=== PATIENT | female | born 1935 | race Caucasian/White ===

== ENCOUNTER 2019-05-13 17:28 | Inpatient (IN) | payer MEDICARE ==
--- NOTE | 2019-05-13 17:58 | ED ---
Fall HPI - General Chief Complaint: Fall Stated Complaint: Fall Time Seen by Provider: 05/13/19 17:30 Source: patient, EMS, RN notes reviewed, old records reviewed Mode of arrival: EMS Limitations: altered mental status - History of Present Illness Initial Comments: This is an 9-year-old female the ER for evaluation. Patient was found during well check, patient was found down. Patient believes she fell sometime last night was unable to get up and was unable to move. He is poor historian history obtained from neighbor who did find patient is morning for a welfare check. States patient is on the ground she was some vomit around her but no other significant findings MD Complaint: fall -: hour(s) Fall From: standing When Fall Occurred: 24 hours [employer] Fall Witnessed: no Place Fall Occurred: home Loss of Consciousness: none Prolonged Down Time?: no Symptoms Prior to Fall: none Severity: mild (Patient is no complaints of pain) Severity scale (1-10): 1 Context: tripped/slipped Associated Symptoms: denies - Related Data Home Medications Medication Instructions Recorded Confirmed Calcium Carbonate/Vitamin D3 1 tab PO DAILY 05/13/19 05/13/19 [Calcium 500-Vit D3 200 Tablet] Allergies Allergy/AdvReac Type Severity Reaction Status Date / Time No Known Allergies Allergy Verified 05/13/19 18:20 Review of Systems ROS Statement: Those systems with pertinent positive or pertinent negative responses have been documented in the HPI. ROS Other: All systems not noted in ROS Statement are negative. Past Medical History Additional Past Medical History / Comment(s): RT breast CA (previous.) History of Any Multi-Drug Resistant Organisms: None Reported Past Surgical History: Appendectomy Additional Past Surgical History / Comment(s): Rt sided mastectomy Past Psychological History: No Psychological Hx Reported Smoking Status: Former smoker Past Alcohol Use History: None Reported Past Drug Use History: None Reported - Past Family History Mother History Unknown: Yes Father History Unknown: Yes Family Medical History: Hyperlipidemia General Exam Limitations: no limitations General appearance: alert, in no apparent distress, anxious Head exam: Present: atraumatic, normocephalic, normal inspection Eye exam: Present: normal appearance, PERRL, EOMI. Absent: scleral icterus, conjunctival injection, periorbital swelling ENT exam: Present: normal exam, mucous membranes moist Neck exam: Present: normal inspection. Absent: tenderness, meningismus, lymphadenopathy Respiratory exam: Present: normal lung sounds bilaterally. Absent: respiratory distress, wheezes, rales, rhonchi, stridor Cardiovascular Exam: Present: tachycardia, irregular rhythm, normal heart sounds. Absent: systolic murmur, diastolic murmur, rubs, gallop, clicks GI/Abdominal exam: Present: soft, normal bowel sounds. Absent: distended, t enderness, guarding, rebound, rigid Extremities exam: Present: normal inspection, full ROM, normal capillary refill. Absent: tenderness, pedal edema, joint swelling, calf tenderness Back exam: Present: normal inspection Neurological exam: Present: alert, oriented X3, CN II-XII intact Psychiatric exam: Present: normal affect, normal mood Skin exam: Present: warm, dry, intact, normal color. 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 ] Respiratory 18 Rate Blood Pressure 104/89 104/89 O2 Sat by Pulse 97 94 L Oximetry 05/13/19 05/13/19 05/13/19 18:00 18:30 18:48 Temperature Pulse Rate 105 H 137 H 125 H Pulse Rate [ Assistant Teaching Professor ] Respiratory 14 12 18 Rate Blood Pressure 104/89 86/74 O2 Sat by Pulse 97 98 98 Oximetry 05/13/19 05/13/19 05/13/19 19:00 19:02 19:30 Temperature Pulse Rate 124 H 113 H Pulse Rate [ Assistant Teaching Professor ] Respiratory 13 18 Rate Blood Pressure 108/72 107/77 127/76 O2 Sat by Pulse 97 99 Oximetry 05/13/19 05/13/19 05/13/19 20:30 21:00 21:30 Temperature Pulse Rate 110 H 112 H 107 H Pulse Rate [ Assistant Teaching Professor ] Respiratory 15 17 20 Rate Blood Pressure 134/94 119/89 O2 Sat by Pulse Oximetry - Reevaluation(s) Reevaluation #1: Medical record is reviewed and no history of A. fib Patient will be admitted for cardiology evaluation regarding new onset A. fib with RVR. Patient denies any significant pain Medical Decision Making - Medical Decision Making 84 female the ER for evaluation. Patient found to be in nature fibrillation with RVR. Symptoms improved with rate control. No other injuries, patient be admitted for cardiology observation - Lab Data Result diagrams: 05/14/19 06:58 05/14/19 06:58 Lab Results 05/13/19 05/13/19 05/13/19 Range/Units 18:40 18:40 18:40 WBC 24.6 H (3.8-10.6) k/uL RBC 5.26 (3.80-5.40) m/uL Hgb 16.0 (11.4-16.0) gm/dL Hct 46.4 H (34.0-46.0) % MCV 88.2 (80.0-100.0) fL MCH 30.4 (25.0-35.0) pg MCHC 34.5 (31.0-37.0) g/dL RDW 13.3 (11.5-15.5) % Plt Count 262 (150-450) k/uL Neutrophils % 91 % Lymphocytes % 3 % Monocytes % 5 % Eosinophils % 1 % Basophils % 0 % Neutrophils # 22.3 H (1.3-7.7) k/uL Lymphocytes # 0.8 L (1.0-4.8) k/uL Monocytes # 1.2 H (0-1.0) k/uL Eosinophils # 0.2 (0-0.7) k/uL Basophils # 0.0 (0-0.2) k/uL PT 10.2 (9.0-12.0) sec INR 0.9 (<1.2) APTT 21.3 L (22.0-30.0) sec D-Dimer 1.38 H (<0.60) mg/L FEU Sodium 129 L (137-145) mmol/L Potassium 3.4 L (3.5-5.1) mmol/L Chloride 91 L (98-107) mmol/L Carbon Dioxide 21 L (22-30) mmol/L Anion Gap 17 mmol/L BUN 23 H (7-17) mg/dL Creatinine 0.61 (0.52-1.04) mg/dL Est GFR (CKD-EPI)AfAm >90 (>60 ml/min/1.73 sqM) Est GFR (CKD-EPI)NonAf 84 (>60 ml/min/1.73 sqM) Glucose 117 H (74-99) mg/dL Lactic Ac Sepsis Rflx Plasma Lactic Acid Travis (0.7-2.0) mmol/L Calcium 10.2 (8.4-10.2) mg/dL Phosphorus 3.3 (2.5-4.5) mg/dL Magnesium 2.2 (1.6-2.3) mg/dL Total Bilirubin 1.5 H (0.2-1.3) mg/dL AST 175 H (14-36) U/L ALT 51 (9-52) U/L Alkaline Phosphatase 130 H (38-126) U/L Creatine Kinase (30-135) U/L CK-MB (CK-2) (0.0-2.4) ng/mL Troponin I (0.000-0.034) ng/mL NT-Pro-B Natriuret Pep pg/mL Total Protein 8.5 H (6.3-8.2) g/dL Albumin 5.0 (3.5-5.0) g/dL TSH 2.230 (0.465-4.680) mIU/L 05/13/19 05/13/19 05/13/19 Range/Units 18:40 18:40 18:40 WBC (3.8-10.6) k/uL RBC (3.80-5.40) m/uL Hgb (11.4-16.0) gm/dL Hct (34.0-46.0) % MCV (80.0-100.0) fL MCH (25.0-35.0) pg MCHC (31.0-37.0) g/dL RDW (11.5-15.5) % Plt Count (150-450) k/uL Neutrophils % % Lymphocytes % % Monocytes % % Eosinophils % % Basophils % % Neutrophils # (1.3-7.7) k/uL Lymphocytes # (1.0-4.8) k/uL Monocytes # (0-1.0) k/uL Eosinophils # (0-0.7) k/uL Basophils # (0-0.2) k/uL PT (9.0-12.0) sec INR (<1.2) APTT (22.0-30.0) sec D-Dimer (<0.60) mg/L FEU Sodium (137-145) mmol/L Potassium (3.5-5.1) mmol/L Chloride (98-107) mmol/L Carbon Dioxide (22-30) mmol/L Anion Gap mmol/L BUN (7-17) mg/dL Creatinine (0.52-1.04) mg/dL Est GFR (CKD-EPI)AfAm (>60 ml/min/1.73 sqM) Est GFR (CKD-EPI)NonAf (>60 ml/min/1.73 sqM) Glucose (74-99) mg/dL Lactic Ac Sepsis Rflx Plasma Lactic Acid Travis 2.6 H* (0.7-2.0) mmol/L Calcium (8.4-10.2) mg/dL Phosphorus (2.5-4.5) mg/dL Magnesium (1.6-2.3) mg/dL Total Bilirubin (0.2-1.3) mg/dL AST (14-36) U/L ALT (9-52) U/L Alkaline Phosphatase (38-126) U/L Creatine Kinase (30-135) U/L CK-MB (CK-2) (0.0-2.4) ng/mL Troponin I 0.113 H* (0.000-0.034) ng/mL NT-Pro-B Natriuret Pep 2130 pg/mL Total Protein (6.3-8.2) g/dL Albumin (3.5-5.0) g/dL TSH (0.465-4.680) mIU/L 05/13/19 05/13/19 05/13/19 Range/Units 18:40 18:40 19:17 WBC (3.8-10.6) k/uL RBC (3.80-5.40) m/uL Hgb (11.4-16.0) gm/dL Hct (34.0-46.0) % MCV (80.0-100.0) fL MCH (25.0-35.0) pg MCHC (31.0-37.0) g/dL RDW (11.5-15.5) % Plt Count (150-450) k/uL Neutrophils % % Lymphocytes % % Monocytes % % Eosinophils % % Basophils % % Neutrophils # (1.3-7.7) k/uL Lymphocytes # (1.0-4.8) k/uL Monocytes # (0-1.0) k/uL Eosinophils # (0-0.7) k/uL Basophils # (0-0.2) k/uL PT (9.0-12.0) sec INR (<1.2) APTT (22.0-30.0) sec D-Dimer (<0.60) mg/L FEU Sodium (137-145) mmol/L Potassium (3.5-5.1) mmol/L Chloride (98-107) mmol/L Carbon Dioxide (22-30) mmol/L Anion Gap mmol/L BUN (7-17) mg/dL Creatinine (0.52-1.04) mg/dL Est GFR (CKD-EPI)AfAm (>60 ml/min/1.73 sqM) Est GFR (CKD-EPI)NonAf (>60 ml/min/1.73 sqM) Glucose (74-99) mg/dL Lactic Ac Sepsis Rflx Y Plasma Lactic Acid Travis (0.7-2.0) mmol/L Calcium (8.4-10.2) mg/dL Phosphorus (2.5-4.5) mg/dL Magnesium (1.6-2.3) mg/dL Total Bilirubin (0.2-1.3) mg/dL AST (14-36) U/L ALT (9-52) U/L Alkaline Phosphatase (38-126) U/L Creatine Kinase 6044 H* (30-135) U/L CK-MB (CK-2) 72.2 H (0.0-2.4) ng/mL Troponin I (0.000-0.034) ng/mL NT-Pro-B Natriuret Pep pg/mL Total Protein (6.3-8.2) g/dL Albumin (3.5-5.0) g/dL TSH (0.465-4.680) mIU/L - EKG Data -: EKG Interpreted by Me (EKG shows A. fib with RVR rate 127, QRS 82, QTc 4:30) - Radiology Data Radiology results: report reviewed (CT brain C-spine negative for acute disease chest x-rays negative for acute disease pelvis x-rays negative for acute disease CTA chest is negative for acute disease), image reviewed Disposition Clinical Impression: Fall, Weakness, Atrial fibrillation with RVR Disposition: ADMITTED IP TO THIS HOSP Condition: Fair Is patient prescribed a controlled substance at d/c from ED?: No
[2019-05-13] MEDS ORDERED: SODIUM CHLORIDE 0.9% 1,000 ML IV STA ×2 (18:16)
[2019-05-13] MEDS ORDERED: DILTIAZEM DRIP BOLUS FROM BAG 1 MG SOLN IV ONE (18:16)
[2019-05-13] MEDS ORDERED: DILTIAZEM 125 MG in SODIUM CHLORIDE 0.9% 100 ML IV SCH (18:30)
[2019-05-13 19:14] LABS: ALT 51 U/L (9-52); AST 175 U/L (14-36); African American GFR (CKD) >90 (>60 ml/min/1.73 sqM); Alkaline Phosphatase 130 U/L (38-126); Anion Gap 17 mmol/L; Blood Urea Nitrogen 23 mg/dL (7-17); Calcium 10.2 mg/dL (8.4-10.2); Carbon Dioxide 21 mmol/L (22-30); Chloride 91 mmol/L (98-107); Glucose 117 mg/dL (74-99); Magnesium 2.2 mg/dL (1.6-2.3); Phosphorus 3.3 mg/dL (2.5-4.5); Potassium 3.4 mmol/L (3.5-5.1); Sodium 129 mmol/L (137-145); Total Bilirubin 1.5 mg/dL (0.2-1.3); Total Protein 8.5 g/dL (6.3-8.2)
[2019-05-13 19:17] LABS: Basophils % (A) 0 %; Eosinophils # (A) 0.2 k/uL (0-0.7); Eosinophils % (A) 1 %; HCT 46.4 % (34.0-46.0); Lymphocytes # (A) 0.8 k/uL (1.0-4.8); Lymphocytes % (A) 3 %; MCH 30.4 pg (25.0-35.0); MCHC 34.5 g/dL (31.0-37.0); MCV 88.2 fL (80.0-100.0); Mean Platelet Volume 9.1; Monocytes # (A) 1.2 k/uL (0-1.0); Monocytes % (A) 5 %; Neutrophils # (A) 22.3 k/uL (1.3-7.7); Neutrophils % (A) 91 %; Platelet Count 262 k/uL (150-450); RBC 5.26 m/uL (3.80-5.40); RDW 13.3 % (11.5-15.5); WBC 24.6 k/uL (3.8-10.6)
[2019-05-13 19:20] LABS: INR 0.9 (<1.2); Prothrombin Time 10.2 sec (9.0-12.0)
[2019-05-13 19:26] LABS: D-Dimer 1.38 mg/L FEU (<0.60); Partial Thromboplastin Time 21.3 sec (22.0-30.0)
--- NOTE | 2019-05-13 19:46 | CT ---
EXAMINATION TYPE: CT brain flora davidson DATE OF EXAM: 05/13/2019 COMPARISON: None HISTORY: Fall and confusion. CT DLP: 1301.7 mGycm Automated exposure control for dose reduction was used. TECHNIQUE: CT scan of the head and cervical spine are performed without contrast. FINDINGS: There is cerebral cortical atrophy. There is no mass effect nor midline shift. There is n o sign of intracranial hemorrhage. The calvarium is intact. There is mild straightening of the cervical spine. There is degenerative disc space narrowing from C3 to C7 with spurring of the endplates. Posterior elements are intact. The skull base is intact. I see no bony destructive process. IMPRESSION: Cerebral atrophy. Mild chronic small vessel ischemia. No acute intracranial abnormality. Spondylotic changes throughout the cervical spine from C3 to C7.. No fracture.
--- NOTE | 2019-05-13 19:56 | XR ---
EXAMINATION TYPE: XR chest 2V DATE OF EXAM: 05/13/2019 COMPARISON: NONE HISTORY: Pain TECHNIQUE: Frontal and lateral views of the chest are obtained. FINDINGS: There is slight coarsening of interstitial pulmonary markings. Heart size is normal. There is no heart failure. Thoracic aorta is atheromatous. There is deformity at the right shoulder joint. There are chest leads. IMPRESSION: Mild pulmonary fibrosis. No acute lung disease.
--- NOTE | 2019-05-13 19:57 | XR ---
EXAMINATION TYPE: XR pelvis AP view DATE OF EXAM: 05/13/2019 COMPARISON: NONE HISTORY: Pain TECHNIQUE: Single view FINDINGS: Pelvic ring is intact. 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 I see no fracture. IMPRESSION: No acute abnormality of the pelvis.
--- NOTE | 2019-05-13 20:23 | CT ---
EXAMINATION TYPE: CT angio chest DATE OF EXAM: 05/13/2019 8:03 PM COMPARISON: None HISTORY: Fall injury CT DLP: 228.9 mGycm Automated exposure control for dose reduction was used. CONTRAST: CTA scan of the thorax is performed with IV Contrast, patient injected with 80 mL of Isovue 370, pulm onary embolism protocol. There are 3-D post processed images.. FINDINGS: There is some patchy linear density at the left lung base consistent with scarring and atelectasis. T here is mild pectus excavatum chest deformity. There is no pleural effusion. There is no pericardial effusion. There is no evidence of a pulmonary mass. There is no mediastinal adenopathy. There are no hilar masses. There is normal contrast opacification of the pulmonary arteries. There are no filling defects. Thora cic aorta appears normal without evidence of aneurysm or dissection. Ascending aorta measures 3 cm. T here is some spurring in the thoracic spine. I see no bony destructive process. IMPRESSION: NO EVIDENCE OF PULMONARY EMBOLISM. MILD FIBROTIC CHANGES AND SUBSEGMENTAL ATELECTASIS AT THE LEFT CATHY G BASE.
--- NOTE | 2019-05-14 02:43 | P.HPIM ---
History of Present Illness H&P Date: 05/14/19 The patient is an 84 yo F with no known PMH presented to the ED after she was found on the ground, and had been unable to get up for an unknown amount of time. The patient was lethargic and sleepy during the history taking. She reports that she was in her usual state of health until yesterday morning when she attempted to get up from her sofa when she fell an was unable to get up. She states that she was on the ground for 2 hours, after which she was able to crawl to a nearby phone and was unable to dial 911. I was informed by the ED physician that the patient had been on the ground for ~ 24 hours, thereby conflicting with the patient's history. The patient otherwise noted that she is doing well aside from some pain in her knees due to crawling. She notes that she had become lightheaded during the fall, though denied losing consciousness. Further denied associated chest pain, SOB, or palpitations. She underwent an extensive evaluation in the ED with a chest x-ray showing mild pulmonary fibrosis, chest CTA showing no pulmonary embolism, EKG showing atrial fibrillation with RVR at 127 bpm, CT brain and cervical spine showing cerebral atrophy, and pelvic x-ray negative for fractures. Laboratory evaluation revealed a BNP of 2130, CK-MB elevated at 6044, troponin 0.113, lactate 2.6, leukocytosis 24.6, hemoglobin 16, BUN 23, creatinine 0.61. Patient is being admitted to the medicine service for rhabdomyolysis and dehydration. Review of Systems Pertinent positives and negatives as discussed in HPI, a complete review of systems was performed and all other systems are negative. Past Medical History Past Medical History: Cancer Additional Past Medical History / Comment(s): RT breast CA (previous.) History of Any Multi-Drug Resistant Organisms: None Reported Past Surgical History: Appendectomy Additional Past Surgical History / Comment(s): Rt sided mastectomy Past Anesthesia/Blood Transfusion Reactions: No Reported Reaction Past Psychological History: No Psychological Hx Reported Smoking Status: Former smoker Past Alcohol Use History: None Reported Past Drug Use History: None Reported - Past Family History Mother History Unknown: Yes Father History Unknown: Yes Family Medical History: Hyperlipidemia Medications and Allergies Home Medications Medication Instructions Recorded Confirmed Type Calcium Carbonate/Vitamin D3 1 tab PO DAILY 05/13/19 05/13/19 History [Calcium 500-Vit D3 200 Tablet] Allergies Allergy/AdvReac Type Severity Reaction Status Date / Time No Known Allergies Allergy Verified 05/13/19 18:20 Physical Exam Vitals: Vital Signs Temp Pulse Pulse Pulse Resp BP Pulse Ox 05/14/19 00:00 97.5 F L 155 H 155 H 18 96 05/13/19 21:30 107 H 20 119/89 05/13/19 21:00 112 H 17 05/13/19 20:30 110 H 15 134/94 05/13/19 19:30 127/76 05/13/19 19:02 113 H 18 107/77 99 05/13/19 19:00 124 H 13 108/72 97 05/13/19 18:48 125 H 18 86/74 98 05/13/19 18:30 137 H 12 98 05/13/19 18:00 105 H 14 104/89 97 05/13/19 17:41 149 H 05/13/19 17:33 104/89 94 L 05/13/19 17:32 97.8 F 141 H 18 104/89 97 Intake and Output 05/13/19 05/13/19 05/14/19 14:59 22:59 06:59 Other: Voiding Method Bedpan # Voids 1 Weight 65.771 kg General: non toxic, no distress, appears at stated age, normal weight Derm: Ecchymosis over left arm and forearm with some other scattered bruising, warm, dry Head: atraumatic, normocephalic, symmetric Eyes: EOMI, no lid lag, anicteric sclera, pupils equal round reactive to light ENT: Nose and ears atraumatic, no thrush, no pharyngeal erythema Neck: No thyromegaly, no cervical lymphadenopathy, trachea midline, supple Mouth: no lip lesion, mucus membranes dry Cardiovascular: Irregularly irregular, systolic murmur appreciated, positive posterior tibial pulse bilateral, no edema, capillary refill less than 2 seconds Lungs: CTA bilateral, no rhonchi, no rales , no accessory muscle use Abdominal: soft, nontender to palpation, no guarding, no appreciable organomegaly, normal bowel sounds Ext: no gross muscle atrophy, muscle strength 4 out of 5 in all 4 extremities grossly, no contractures, Neuro: CN II-XI grossly intact, light touch intact all 4 extremities, finger to nose within normal limits, Psych: Alert, oriented, appropriate affect Results CBC & Chem 7: 05/13/19 18:40 05/13/19 18:40 Labs: Abnormal Lab Results - Last 24 Hours (Table) 05/13/19 05/13/19 05/13/19 Range/Units 18:40 18:40 18:40 WBC 24.6 H (3.8-10.6) k/uL Hct 46.4 H (34.0-46.0) % Neutrophils # 22.3 H (1.3-7.7) k/uL Lymphocytes # 0.8 L (1.0-4.8) k/uL Monocytes # 1.2 H (0-1.0) k/uL APTT 21.3 L (22.0-30.0) sec D-Dimer 1.38 H (<0.60) mg/L FEU Sodium 129 L (137-145) mmol/L Potassium 3.4 L (3.5-5.1) mmol/L Chloride 91 L (98-107) mmol/L Carbon Dioxide 21 L (22-30) mmol/L BUN 23 H (7-17) mg/dL Glucose 117 H (74-99) mg/dL Plasma Lactic Acid Travis (0.7-2.0) mmol/L Total Bilirubin 1.5 H (0.2-1.3) mg/dL AST 175 H (14-36) U/L Alkaline Phosphatase 130 H (38-126) U/L Creatine Kinase (30-135) U/L CK-MB (CK-2) (0.0-2.4) ng/mL Troponin I (0.000-0.034) ng/mL Total Protein 8.5 H (6.3-8.2) g/dL 05/13/19 05/13/19 05/13/19 Range/Units 18:40 18:40 18:40 WBC (3.8-10.6) k/uL Hct (34.0-46.0) % Neutrophils # (1.3-7.7) k/uL Lymphocytes # (1.0-4.8) k/uL Monocytes # (0-1.0) k/uL APTT (22.0-30.0) sec D-Dimer (<0.60) mg/L FEU Sodium (137-145) mmol/L Potassium (3.5-5.1) mmol/L Chloride (98-107) mmol/L Carbon Dioxide (22-30) mmol/L BUN (7-17) mg/dL Glucose (74-99) mg/dL Plasma Lactic Acid Travis 2.6 H* (0.7-2.0) mmol/L Total Bilirubin (0.2-1.3) mg/dL AST (14-36) U/L Alkaline Phosphatase (38-126) U/L Creatine Kinase (30-135) U/L CK-MB (CK-2) 72.2 H (0.0-2.4) ng/mL Troponin I 0.113 H* (0.000-0.034) ng/mL Total Protein (6.3-8.2) g/dL 05/13/19 05/13/19 Range/Units 18:40 22:52 WBC (3.8-10.6) k/uL Hct (34.0-46.0) % Neutrophils # (1.3-7.7) k/uL Lymphocytes # (1.0-4.8) k/uL Monocytes # (0-1.0) k/uL APTT (22.0-30.0) sec D-Dimer (<0.60) mg/L FEU Sodium (137-145) mmol/L Potassium (3.5-5.1) mmol/L Chloride (98-107) mmol/L Carbon Dioxide (22-30) mmol/L BUN (7-17) mg/dL Glucose (74-99) mg/dL Plasma Lactic Acid Travis 2.1 H* (0.7-2.0) mmol/L Total Bilirubin (0.2-1.3) mg/dL AST (14-36) U/L Alkaline Phosphatase (38-126) U/L Creatine Kinase 6044 H* (30-135) U/L CK-MB (CK-2) (0.0-2.4) ng/mL Troponin I (0.000-0.034) ng/mL Total Protein (6.3-8.2) g/dL Thrombosis Risk Factor Assmnt - Choose All That Apply Any of the Below Risk Factors Present?: Yes Each Factor Represents 1 point: Swollen legs (current) Each Risk Factor Represents 3 Points: Age 75 years or older Thrombosis Risk Factor Assessment Total Risk Factor Score: 4 Thrombosis Risk Factor Assessment Level: Moderate Risk Assessment and Plan Plan: Rhabdomyolysis secondary to fall with dehydration and inability to get up -IV fluids -Monitor CK levels Atrial fibrillation, newly diagnosed with RVR -Cardiac monitoring -Continue with Cardizem infusion -Start Aspirin 81 mg qd, hold off on further anticoagulation until risk stratification by cardiology -Start Lopressor 50 mg bid -Echocardiogram Troponin elevation, likely secondary to rhabdomyolysis and atrial fibrillation with RVR -Patient denying chest pain or shortness of breath -Trend troponin -Cardiac monitoring Leukocytosis, likely stress related -Monitor CBC DVT prophylaxis -Lovenox The patient is admitted with an anticipated greater than 2 midnight stay for evaluation of []. CODE STATUS:Full Code Discussed with: Patient Anticipated discharge date: 05/16/[address]: Home A total of 45 minutes was spent on the care of this complex patient more than 50% of the time was spent in counseling and care coordination.
[2019-05-14] MEDS ORDERED: POTASSIUM CHLORIDE ER 20 MEQ TAB.ER PO STA ×2 (03:48→12:05)
[2019-05-14 07:36] LABS: HCT 41.1 % (34.0-46.0); HGB 13.9 gm/dL (11.4-16.0); MCH 30.4 pg (25.0-35.0); MCHC 33.8 g/dL (31.0-37.0); MCV 89.8 fL (80.0-100.0); Mean Platelet Volume 9.8; Platelet Count 197 k/uL (150-450); RBC 4.58 m/uL (3.80-5.40)
[2019-05-14 08:23] LABS: ALT 50 U/L (9-52); AST 116 U/L (14-36); African American GFR (CKD) >90 (>60 ml/min/1.73 sqM); Albumin 3.4 g/dL (3.5-5.0); Alkaline Phosphatase 74 U/L (38-126); Anion Gap 14 mmol/L; Blood Urea Nitrogen 22 mg/dL (7-17); Carbon Dioxide 14 mmol/L (22-30); Chloride 102 mmol/L (98-107); Glucose 94 mg/dL (74-99); Sodium 130 mmol/L (137-145); Total Bilirubin 0.7 mg/dL (0.2-1.3); Total Protein 6.3 g/dL (6.3-8.2)
[2019-05-14 08:27] LABS: Creatine Kinase >1600 U/L (30-135)
[2019-05-14 08:28] LABS: Potassium 3.4 mmol/L (3.5-5.1)
[2019-05-14] MEDS ORDERED: ENOXAPARIN 40 MG/0.4 ML SYRINGE SQ SCH (09:00)
[2019-05-14] MEDS: ASPIRIN 81 MG PO SCH (10:17)
[2019-05-14] MEDS: METOPROLOL TARTRATE 50 MG TAB PO SCH ×2 (10:17→19:55)
--- NOTE | 2019-05-14 10:44 | ECHOF ---
Referral Reason:afib MEASUREMENTS -------- HEIGHT: 167.6 cm WEIGHT: 70.8 kg BP: 119/89 IVSd: 0.9 cm (0.6 - 1.1) LVIDd: 3.2 cm (3.9 - 5.3) LVPWd: 1.1 cm (0.6 - 1.1) IVSs: 1.5 cm LVIDs: 1.8 cm LVPWs: 1.7 cm Ao Diam: 2.8 cm (2.0 - 3.7) AV Cusp: 1.3 cm (1.5 - 2.6) LA Diam: 3.4 cm (2.7 - 3.8) MV EXCURSION: 17.766 mm (> 18.000) MV EF SLOPE: 104 mm/s (70 - 150) EPSS: 1.0 cm MV E Cedric: 0.83 m/s MV DecT: 272 ms MV A Cedric: 0.76 m/s MV E/A Ratio: 1.10 RAP: 5.00 mmHg RVSP: 17.34 mmHg FINDINGS -------- Sinus rhythm with extra systolic beats. This was a technically adequate study. The left ventricular size is normal. Left ventricular wall thickness is normal. Overall left vent ricular systolic function is normal with, an EF between 55 - 60 %. The right ventricle is normal in size. The left atrial size is normal. The right atrial size is normal. The aortic valve is trileaflet, and appears structurally normal. No aortic stenosis or regurgitation. Mild mitral annular calcification present. There is trace mitral regurgitation. The tricuspid valve appears structurally normal. Mild tricuspid regurgitation present. There is n o evidence of pulmonary hypertension. The right ventricular systolic pressure, as measured by Doppl er, is 17.34mmHg. There is no pulmonic regurgitation present. The aortic root size is normal. Normal inferior vena cava with normal inspiratory collapse consistent with estimated right atrial pre ssure of 5 mmHg. There is no pericardial effusion. CONCLUSIONS -------- 1. Sinus rhythm with extra systolic beats. 2. This was a technically adequate study. 3. The left ventricular size is normal. 4. Left ventricular wall thickness is normal. 5. Overall left ventricular systolic function is normal with, an EF between 55 - 60 %. 6. The left atrial size is normal. 7. The aortic valve is trileaflet, and appears structurally normal. No aortic stenosis or regurgitati on. 8. Mild mitral annular calcification present. 9. There is trace mitral regurgitation. 10. The tricuspid valve appears structurally normal. 11. Mild tricuspid regurgitation present. 12. There is no evidence of pulmonary hypertension. 13. There is no pulmonic regurgitation present. 14. The aortic root size is normal. 15. Normal inferior vena cava with normal inspiratory collapse consistent with estimated right atrial pressure of 5 mmHg. 16. There is no pericardial effusion. TRUCK BRACER: Alberta Rod RDCS
--- NOTE | 2019-05-14 12:02 | P.CRDCN ---
History of Present Illness Consult date: 05/14/19 Chief complaint: Weakness History of present illness: This is a pleasant 84-year-old female patient was no significant past medical history, as a matter of fact the patient only receiving vitamin and calcium at home as an outpatient, was brought to the emergency room after she was found on the floor at home and able to get up. The patient somewhat is a poor historian. She stated that she was in her usual state of health where she is able to take care of herself until yesterday when she fell on the floor and attempted to get up but she was unable. She does remember if she did have an episode of syncope or no. But she denies any symptoms of chest pain or chest discomfort, shortness of breath, dizziness, or warm feeling in the face. She was brought to the emergency room by ambulance. In the ER the patient was found to be in atrial fibrillation with RVR and heart rate around 130 beats per minutes. The patient does not recall any history of atrial fibrillation and never seen by a operating engineer in the past. Immediately she was started on Cardizem IV. She continues to be in atrial fibrillation. Beside that she was started on metoprolol by mouth. Also she is on anticoagulation with Lovenox. The echocardiogram was performed and showed normal LV function was mild MR and mild TR. The EKG showed atrial fibrillation with RVR and diffuse nonspecific ST and T wave abnormalities. The CPK came in to be severe lead elevated and the troponin was mildly elevated. The patient possibly did have rhabdomyolysis. The kidney function so far is within normal limits. Past Medical History Past Medical History: Cancer Additional Past Medical History / Comment(s): RT breast CA (previous.) History of Any Multi-Drug Resistant Organisms: None Reported Past Surgical History: Appendectomy Additional Past Surgical History / Comment(s): Rt sided mastectomy Past Anesthesia/Blood Transfusion Reactions: No Reported Reaction Past Psychological History: No Psychological Hx Reported Smoking Status: Former smoker Past Alcohol Use History: None Reported Past Drug Use History: None Reported - Past Family History Mother History Unknown: Yes Father History Unknown: Yes Family Medical History: Hyperlipidemia Medications and Allergies Home Medications Medication Instructions Recorded Confirmed Type Calcium Carbonate/Vitamin D3 1 tab PO DAILY 05/13/19 05/13/19 History [Calcium 500-Vit D3 200 Tablet] Allergies Allergy/AdvReac Type Severity Reaction Status Date / Time No Known Allergies Allergy Verified 05/13/19 18:20 Physical Exam Vitals: Vital Signs Temp Pulse Pulse Pulse Resp BP BP 05/14/19 08:00 98.6 F 106 H 16 114/54 05/14/19 04:00 98.3 F 91 91 18 05/14/19 00:00 97.5 F L 155 H 155 H 18 05/13/19 21:30 107 H 20 119/89 05/13/19 21:00 112 H 17 05/13/19 20:30 110 H 15 134/94 05/13/19 19:30 127/76 05/13/19 19:02 113 H 18 107/77 05/13/19 19:00 124 H 13 108/72 05/13/19 18:48 125 H 18 86/74 05/13/19 18:30 137 H 12 05/13/19 18:00 105 H 14 104/89 05/13/19 17:41 149 H 05/13/19 17:33 104/89 05/13/19 17:32 97.8 F 141 H 18 104/89 Pulse Ox 05/14/19 08:00 99 05/14/19 04:00 98 05/14/19 00:00 96 05/13/19 21:30 05/13/19 21:00 05/13/19 20:30 05/13/19 19:30 05/13/19 19:02 99 05/13/19 19:00 97 05/13/19 18:48 98 05/13/19 18:30 98 05/13/19 18:00 97 05/13/19 17:41 05/13/19 17:33 94 L 05/13/19 17:32 97 Intake and Output 05/13/19 05/14/19 05/14/19 22:59 06:59 14:59 Intake Total 40.417 340 Balance 40.417 340 Intake: Intake, IV Titration 40.417 100 Amount Diltiazem 125 mg In 40.417 Sodium Chloride 0.9% 100 ml @ 5 MG/HR 5 mls/hr IV .Q24H [facility] Rx#:[id number] Sodium Chloride 0.9% 1, 100 000 ml @ 100 mls/hr IV . Q10H [facility] Rx#:[id number] Oral 240 Other: Voiding Method Bedpan # Voids 1 Weight 65.771 kg 71 kg - Constitutional General appearance: no acute distress - Respiratory Respiratory: bilateral: diminished - Cardiovascular Rhythm: irregularly irregular Heart sounds: normal: S1, S2 Abnormal Heart Sounds: systolic murmur Results 05/14/19 06:58 05/14/19 06:58 Cardiac Enzymes 05/13/19 05/13/19 05/13/19 Range/Units 18:40 18:40 18:40 AST 175 H (14-36) U/L CK-MB (CK-2) 72.2 H (0.0-2.4) ng/mL Troponin I 0.113 H* (0.000-0.034) ng/mL 05/14/19 05/14/19 Range/Units 06:58 06:58 AST 116 H (14-36) U/L CK-MB (CK-2) (0.0-2.4) ng/mL Troponin I 0.117 H* (0.000-0.034) ng/mL Coagulation 05/13/19 Range/Units 18:40 PT 10.2 (9.0-12.0) sec APTT 21.3 L (22.0-30.0) sec CBC 05/13/19 05/14/19 Range/Units 18:40 06:58 WBC 24.6 H 17.0 H (3.8-10.6) k/uL RBC 5.26 4.58 (3.80-5.40) m/uL Hgb 16.0 13.9 (11.4-16.0) gm/dL Hct 46.4 H 41.1 (34.0-46.0) % Plt Count 262 197 (150-450) k/uL Comprehensive Metabolic Panel 05/13/19 05/14/19 Range/Units 18:40 06:58 Sodium 129 L 130 L (137-145) mmol/L Potassium 3.4 L 3.4 L (3.5-5.1) mmol/L Chloride 91 L 102 (98-107) mmol/L Carbon Dioxide 21 L 14 L (22-30) mmol/L BUN 23 H 22 H (7-17) mg/dL Creatinine 0.61 0.47 L (0.52-1.04) mg/dL Glucose 117 H 94 (74-99) mg/dL Calcium 10.2 9.0 (8.4-10.2) mg/dL AST 175 H 116 H (14-36) U/L ALT 51 50 (9-52) U/L Alkaline Phosphatase 130 H 74 (38-126) U/L Total Protein 8.5 H 6.3 (6.3-8.2) g/dL Albumin 5.0 3.4 L (3.5-5.0) g/dL Current Medications Generic Name Dose Route Start Last Admin Trade Name Lisa PRN Reason Stop Dose Admin Aspirin 81 mg 05/14/19 09:00 05/14/19 10:17 Aspirin PO 81 mg DAILY [facility] Administration Enoxaparin Sodium 40 mg 05/14/19 09:00 05/14/19 10:17 Lovenox SQ 40 mg DAILY [facility]INA Administration Diltiazem HCl 125 mg/ Sodium 125 mls @ 5 mls/hr 05/13/19 18:30 05/14/19 04:20 Chloride IV 2.5 mg/hr .Q24H [facility] 2.5 mls/hr Infusion 5 MG/HR Metoprolol Tartrate 50 mg 05/14/19 09:00 05/14/19 10:17 Lopressor PO 50 mg BID [facility]RISTINA Administration Intake and Output 05/13/19 05/14/19 05/14/19 22:59 06:59 14:59 Intake Total 40.417 340 Balance 40.417 340 Intake: Intake, IV Titration 40.417 100 Amount Diltiazem 125 mg In 40.417 Sodium Chloride 0.9% 100 ml @ 5 MG/HR 5 mls/hr IV .Q24H [facility] Rx#:[id number] Sodium Chloride 0.9% 1, 100 000 ml @ 100 mls/hr IV . Q10H [facility] Rx#:[id number] Oral 240 Other: Voiding Method Bedpan # Voids 1 Weight 65.771 kg 71 kg 05/14/19 06:58 05/14/19 06:58 Assessment and Plan Assessment: Assessment #1 atrial fibrillation with RVR, this is new to the patient. #2 rhabdomyolysis #3 mildly abnormal troponin Plan #1 the patient currently is on anticoagulation was Lovenox #2 she need to be on oral anticoagulation down the line #3 try to wean the patient from the Cardizem IV #4 continue by mouth beta art with metoprolol #5 the echocardiogram was reviewed and showed normal LV function #6 continue IV fluids for rhabdomyolysis Thank you for allowing us participate in the care of the patient.
[2019-05-14 12:57] LABS: Appearance,Urine Cloudy (Clear); Bacteria,Urine Rare /hpf; Bilirubin,Urine Negative (Negative); Blood,Urine Negative (Negative); Color,Urine Yellow; Glucose,Urine (UA) Negative (Negative); Ketones,Urine 1+ (Negative); Leukocyte Esterase,Urine Small (Negative); Mucus,Urine Rare /hpf; Nitrite,Urine Negative (Negative); PH, Urine 6.5 (5.0-8.0); Protein,Urine Trace (Negative); RBC,Urine <1 /hpf (0-5); Specific Gravity,Urine 1.019 (1.001-1.035); Urobilinogen,Urine <2.0 mg/dL (<2.0); WBC,Urine 15 /hpf (0-5)
[2019-05-14] MEDS ORDERED: SODIUM CHLORIDE 0.9% 500 ML 500 ML IV ONE (17:50)
--- NOTE | 2019-05-14 17:52 | P.PN ---
Progress Note - Text Progress Note Date: 05/14/19 Briefly this is a 84-year-old female that is admitted with acute rhabdomyolysis after being found on home noted to have a significantly elevated [place] of 6044 trending down to 1600, patient is now making urine and her creatinine is normal. She is continued on IV fluids plans to closely follow her electrolytes, we'll replace her potassium. The patient noted to have new onset A. fib with RVR she is continued on IV Cardizem for now with plans to wean and transition to beta blockers. Echocardiogram revealing preserved LVEF of 55-60%, without any significant valvular abnormalities. The patient is noted to have a extreme leukocytosis that is trending down with fluids likely acute phase reaction to stress. Continue current management
[2019-05-14] MEDS: SODIUM CHLORIDE 0.9% 1,000 ML IV SCH (19:41)
[2019-05-14] MEDS: ENOXAPARIN 60 MG/0.6 ML SYRINGE SQ SCH (22:09)
[2019-05-15] MEDS: SODIUM CHLORIDE 0.9% 1,000 ML IV SCH ×2 (05:17→14:14)
[2019-05-15 06:58] LABS: Basophils # (A) 0.1 k/uL (0-0.2); Basophils % (A) 1 %; Eosinophils # (A) 0.2 k/uL (0-0.7); Eosinophils % (A) 2 %; HCT 30.2 % (34.0-46.0); Lymphocytes # (A) 1.7 k/uL (1.0-4.8); Lymphocytes % (A) 17 %; MCH 29.7 pg (25.0-35.0); MCHC 33.1 g/dL (31.0-37.0); MCV 89.7 fL (80.0-100.0); Mean Platelet Volume 9.4; Monocytes # (A) 0.8 k/uL (0-1.0); Monocytes % (A) 8 %; Neutrophils # (A) 6.7 k/uL (1.3-7.7); Neutrophils % (A) 70 %; Platelet Count 158 k/uL (150-450); RBC 3.37 m/uL (3.80-5.40); RDW 14.2 % (11.5-15.5); WBC 9.6 k/uL (3.8-10.6)
[2019-05-15 07:12] LABS: ALT 41 U/L (9-52); AST 62 U/L (14-36); African American GFR (CKD) >90 (>60 ml/min/1.73 sqM); Albumin 2.6 g/dL (3.5-5.0); Alkaline Phosphatase 59 U/L (38-126); Anion Gap 2 mmol/L; Blood Urea Nitrogen 15 mg/dL (7-17); Calcium 7.9 mg/dL (8.4-10.2); Carbon Dioxide 23 mmol/L (22-30); Chloride 106 mmol/L (98-107); Glucose 95 mg/dL (74-99); Potassium 4.4 mmol/L (3.5-5.1); Sodium 131 mmol/L (137-145); Total Bilirubin 0.5 mg/dL (0.2-1.3); Total Protein 4.9 g/dL (6.3-8.2)
[2019-05-15 07:19] LABS: Creatine Kinase 1110 U/L (30-135)
[2019-05-15] MEDS: ASPIRIN 81 MG PO SCH (08:07)
[2019-05-15] MEDS: ENOXAPARIN 60 MG/0.6 ML SYRINGE SQ SCH (08:07)
[2019-05-15] MEDS: METOPROLOL TARTRATE 50 MG TAB PO SCH ×2 (08:07→20:49)
--- NOTE | 2019-05-15 16:03 | P.PN ---
Subjective Progress Note Date: 05/15/19 This is a pleasant 84-year-old female patient was no significant past medical history, as a matter of fact the patient only receiving vitamin and calcium at home as an outpatient, was brought to the emergency room after she was found on the floor at home and able to get up. The patient somewhat is a poor historian. She stated that she was in her usual state of health where she is able to take care of herself until yesterday when she fell on the floor and attempted to get up but she was unable. She does remember if she did have an episode of syncope or no. But she denies any symptoms of chest pain or chest discomfort, shortness of breath, dizziness, or warm feeling in the face. She was brought to the emergency room by ambulance. In the ER the patient was found to be in atrial fibrillation with RVR and heart rate around 130 beats per minutes. The patient does not recall any history of atrial fibrillation and never seen by a hospital account liaison in the past. Immediately she was started on Cardizem IV. She continues to be in atrial fibrillation. Beside that she was started on metoprolol by mouth. Also she is on anticoagulation with Lovenox. The echocardiogram was performed and showed normal LV function was mild MR and mild TR. The EKG showed atrial fibrillation with RVR and diffuse nonspecific ST and T wave abnormalities. The CPK came in to be severe lead elevated and the troponin was mildly elevated. The patient possibly did have rhabdomyolysis. The kidney function so far is within normal limits. 05/15/2019 Patient seen and examined this morning, quite confused actually, she states that the hospital account liaison brought her to the hospital. This is why she came. Continues to be in atrial fibrillation, her rate is under adequate control. Echocardiogram with Doppler study revealed an ejection fraction of 55-60%. We will discontinue the Lovenox today and start the patient on Eliquis. Objective - Vital Signs Vital signs: Vital Signs Temp 98.1 F 05/15/19 08:00 Pulse 76 05/15/19 14:54 Resp 16 05/15/19 14:54 BP 115/56 05/15/19 14:54 Pulse Ox 96 05/15/19 14:54 Intake & Output 05/14/19 05/15/19 05/15/19 18:59 06:59 18:59 Intake Total 2140 580 Output Total 500 1000 Balance 1640 -1000 580 Weight 74 kg Intake: Intake, IV Titration 600 100 Amount Sodium Chloride 0.9% 1, 100 000 ml @ 100 mls/hr IV . Q10H [facility] Rx#:[id number] Sodium Chloride 0.9% 1, 600 000 ml @ 100 mls/hr IV . Q10H [facility] Rx#:[id number] Oral 1540 480 Output: Urine 500 1000 Straight 500 1000 Post Void Residual 0 Other: Voiding Method Indwelling Catheter # Voids 2 # Bowel Movements 1 - Exam PHYSICAL EXAMINATION: GENERAL: He 4-year-old female in no acute distress at the time of my examination HEENT: Head is atraumatic, normocephalic. Pupils equal, round. Sclera anicteric. Conjunctiva are clear. Mucous membranes of the mouth are moist. Neck is supple. There is no elevated jugular venous pressure. No carotid bruit is heard. HEART EXAMINATION: S1 and S2 irregularly irregular a systolic murmur is heard CHEST EXAMINATION: Was reveal diminished air entry to bilateral bases. ABDOMEN: Soft, nontender. Bowel sounds are heard. No organomegaly noted. EXTREMITIES: 2+ peripheral pulses with no evidence of peripheral edema and no calf tenderness noted. NEUROLOGIC [patient is awake, alert and oriented X1 . - Labs CBC & Chem 7: 05/15/19 06:40 05/15/19 06:40 Labs: Abnormal Lab Results - Last 24 Hours (Table) 05/15/19 05/15/19 Range/Units 06:40 06:40 RBC 3.37 L (3.80-5.40) m/uL Hgb 10.0 L D (11.4-16.0) gm/dL Hct 30.2 L (34.0-46.0) % Sodium 131 L (137-145) mmol/L Creatinine 0.46 L (0.52-1.04) mg/dL Calcium 7.9 L (8.4-10.2) mg/dL AST 62 H (14-36) U/L Creatine Kinase 1110 H* (30-135) U/L Total Protein 4.9 L (6.3-8.2) g/dL Albumin 2.6 L (3.5-5.0) g/dL Microbiology - Last 24 Hours (Table) 05/13/19 21:36 Blood Culture - Preliminary Blood No Growth after 24 hours 05/14/19 12:35 Urine Culture - Preliminary Urine,Catheterized Assessment and Plan Plan: Assessment #1 atrial fibrillation with RVR, this is new to the patient. Persistent. #2 rhabdomyolysis #3 mildly abnormal troponin Plan Echocardiogram with Doppler study revealed a normal left ventricular systolic function. We will discontinue Lovenox and start the patient on Eliquis today. DNP note has been reviewed, I agree with a documented findings and plan of care. Patient was seen and examined.
--- NOTE | 2019-05-15 16:33 | P.PN ---
Subjective Progress Note Date: 05/15/19 Patient seen and examined at bedside, also complaining of weakness. Continues to be in A. fib but rate is now controlled. Reports worked with physical therapy in the sitting up bedside. Discussed plan of care and that she may need to go to a [facility] facility briefly for rehab versus home depending on how she progresses with physical therapy while here. A potassium 4.4 total creatinine kinase 1110 patient continues on IV fluids. No acute events overnight Objective - Vital Signs Vital signs: Vital Signs Temp 98.1 F 05/15/19 08:00 Pulse 76 05/15/19 14:54 Resp 16 05/15/19 14:54 BP 115/56 05/15/19 14:54 Pulse Ox 96 05/15/19 14:54 Intake & Output 05/14/19 05/15/19 05/15/19 18:59 06:59 18:59 Intake Total 2140 580 Output Total 500 1000 Balance 1640 -1000 580 Weight 74 kg Intake: Intake, IV Titration 600 100 Amount Sodium Chloride 0.9% 1, 100 000 ml @ 100 mls/hr IV . Q10H [facility] Rx#:[id number] Sodium Chloride 0.9% 1, 600 000 ml @ 100 mls/hr IV . Q10H [facility] Rx#:[id number] Oral 1540 480 Output: Urine 500 1000 Straight 500 1000 Post Void Residual 0 Other: Voiding Method Indwelling Catheter # Voids 2 # Bowel Movements 1 - Exam Constitutional: No acute distress, conversant, pleasant Eyes: Anicteric sclerae, moist conjunctiva, no lid-lag, PERRLA ENMT: NC/AT,Oropharynx clear, no erythema, exudates Neck:Supple, FROM, no masses, or JVD, No carotid bruits; No thyromegaly Lungs: Clear to auscultation, Clear to percussion, Normal respiratory effort, no accessory muscle use Cardiovascular: Irregularly irregular, No murmurs, gallops, or rubs no peripheral edema Abdominal: Soft Nontender, nom distended, no guarding, no rebound or rigidity, Normoactive bowel sounds No hepatomegaly, No splenomegaly, No palpable mass No abdominal wall hernia noted Skin: Normal temperature, tone, texture, turgor, No induration No subcutaneous nodules, No rash, lesions, No ulcers Extremities:No digital cyanosis No clubbing, Pedal pulses intact and symmetrical Radial pulses intact and symmetrical Normal gait and station, No calf tenderness Psychiatric: Alert and oriented to person, place and time, Appropriate affect Intact judgement Neuro: Muscles Strength 5/5 in all 4 extremities, Sensation to light touch grossly present throughout, Cranial nerves II-XII grossly intact. No focal sensory deficits - Labs CBC & Chem 7: 05/15/19 06:40 05/15/19 06:40 Labs: Abnormal Lab Results - Last 24 Hours (Table) 05/15/19 05/15/19 Range/Units 06:40 06:40 RBC 3.37 L (3.80-5.40) m/uL Hgb 10.0 L D (11.4-16.0) gm/dL Hct 30.2 L (34.0-46.0) % Sodium 131 L (137-145) mmol/L Creatinine 0.46 L (0.52-1.04) mg/dL Calcium 7.9 L (8.4-10.2) mg/dL AST 62 H (14-36) U/L Creatine Kinase 1110 H* (30-135) U/L Total Protein 4.9 L (6.3-8.2) g/dL Albumin 2.6 L (3.5-5.0) g/dL Microbiology - Last 24 Hours (Table) 05/13/19 21:36 Blood Culture - Preliminary Blood No Growth after 24 hours 05/14/19 12:35 Urine Culture - Preliminary Urine,Catheterized Assessment and Plan (1) Rhabdomyolysis Narrative/Plan: * Secondary to fall * Total creatinine kinase trending down from 6044 to 1110 * Patient continues to have good urine output and metabolic acidosis has resolved * We'll continue with IV fluids NS @ 100 cc/hour Current Visit: Yes Status: Acute Code(s): M62.82 - RHABDOMYOLYSIS SNOMED Code(s): 183168959 (2) Atrial fibrillation with RVR Narrative/Plan: * A. fib continues ventricular rate now controlled * Continue with beta art and patient initiated on DOAC with Eliquis today * Echocardiogram showing preserved LVEF of 55-60% Current Visit: Yes Status: Acute Code(s): I48.91 - UNSPECIFIED ATRIAL FIBRILLATION SNOMED Code(s): 696241821061825 (3) Elevated troponin Narrative/Plan: * Secondary to fall Current Visit: Yes Status: Acute Code(s): R74.8 - ABNORMAL LEVELS OF OTHER SERUM ENZYMES SNOMED Code(s): 873558660 (4) Fall Current Visit: Yes Status: Acute Code(s): W19.XXXA - UNSPECIFIED FALL, INITIAL ENCOUNTER SNOMED Code(s): 9528621 (5) Weakness Narrative/Plan: * Patient encouraged to work hard with PT OT Current Visit: Yes Status: Acute Code(s): R53.1 - WEAKNESS SNOMED Code(s): 27388546 Plan: * Disposition anticipate discharge tomorrow * Continue IV fluids
[2019-05-15] MEDS: APIXABAN 2.5 MG TABLET PO SCH (20:49)
[2019-05-15 21:17] LABS: Glucose,Whole Blood 108 mg/dL (75-99)
[2019-05-16] MEDS: SODIUM CHLORIDE 0.9% 1,000 ML IV SCH ×2 (05:34→13:01)
[2019-05-16 06:20] LABS: Glucose,Whole Blood 91 mg/dL (75-99)
[2019-05-16 07:03] LABS: Basophils % (A) 1 %; Eosinophils # (A) 0.3 k/uL (0-0.7); Eosinophils % (A) 4 %; HCT 30.6 % (34.0-46.0); HGB 10.1 gm/dL (11.4-16.0); Lymphocytes # (A) 1.4 k/uL (1.0-4.8); Lymphocytes % (A) 21 %; MCH 29.7 pg (25.0-35.0); MCHC 32.9 g/dL (31.0-37.0); MCV 90.3 fL (80.0-100.0); Mean Platelet Volume 9.3; Monocytes # (A) 0.5 k/uL (0-1.0); Monocytes % (A) 7 %; Neutrophils # (A) 4.6 k/uL (1.3-7.7); Neutrophils % (A) 67 %; Platelet Count 159 k/uL (150-450); RBC 3.39 m/uL (3.80-5.40); RDW 14.1 % (11.5-15.5); WBC 6.9 k/uL (3.8-10.6)
[2019-05-16 07:26] LABS: ALT 39 U/L (9-52); AST 44 U/L (14-36); African American GFR (CKD) >90 (>60 ml/min/1.73 sqM); Albumin 2.6 g/dL (3.5-5.0); Alkaline Phosphatase 60 U/L (38-126); Anion Gap 4 mmol/L; Blood Urea Nitrogen 11 mg/dL (7-17); Calcium 7.6 mg/dL (8.4-10.2); Carbon Dioxide 23 mmol/L (22-30); Chloride 106 mmol/L (98-107); Creatine Kinase 705 U/L (30-135); Glucose 86 mg/dL (74-99); Sodium 133 mmol/L (137-145); Total Bilirubin 0.5 mg/dL (0.2-1.3); Total Protein 5.1 g/dL (6.3-8.2)
[2019-05-16 08:39] VITALS: BP 131/73; PULSE 91; RESP 16; TEMP 97.9
[2019-05-16] MEDS: METOPROLOL TARTRATE 50 MG TAB PO SCH (08:40)
[2019-05-16] MEDS: APIXABAN 2.5 MG TABLET PO SCH (08:40)
[2019-05-16] MEDS: ASPIRIN 81 MG PO SCH (08:40)
--- NOTE | 2019-05-16 10:30 | P.DS ---
Providers Date of admission: 05/13/19 20:32 Expected date of discharge: 05/16/19 Attending physician: Meaghan Shah MD Consults: 05/14/19 02:32 Consult Physician Urgent Consulting Provider: Gold Andrews Consult Reason/Comments: Newly diagnosed CHF Do you want consulting provider notified?: Yes Primary care physician: David Marie Hospital Course: Discharge Diagnosis: Fall Rhabdomyolysis Hyponatremia Lactic acidosis Atrial fibrillation with rapid ventricular response Urinary retention requiring Lind catheter Elevated troponins felt to be secondary to rhabdo Generalized weakness Hospital Course: Patient is an 84-year-old female with no known past medical history who presented to the emergency department after she was found on the ground, and had been unable to get up for an unknown amount of time. In the ER she underwent an extensive evaluation. Her vital signs showed tachycardia with a heart rate of 127, this was confirmed atrial fibrillation with EKG. CT brain showed cerebral atrophy, cervical spine CT was negative, pelvic x-ray negative for fractures. She was found have an elevated BNP at 2130, L at stated CPK at 6044, elevated troponin at 0.113, elevated lactic acid at 2.6, leukocytosis 24.6, hemoglobin 16, BUN 23, and creatinine 0.61. Patient was admitted to the medicine service for rhabdo and dehydration. She was started on a Cardizem drip for RVR. She was seen by cardiology and was started on oral metoprolol. She underwent an echocardiogram which showed an ejection fraction of 55-60% with mild MR and TR. Troponin remained flat. She was given IV fluids and her CPK improved. Her sodium also increased to 133. She was seen by physical therapy and was unable to ambulate on her own. She was requiring 2 person assist. She was amenable to rehab. Her family was contacted and was in agreement with rehab. Patient is pleasantly confused and does not remember laying on the floor when falling. Case management discussed the case with [id number] and neighbor who states patient is unable to care for herself. She will be discharged tomorrow would. She was also noted to have urinary retention and required a Lind catheter. This was removed prior to discharge on 620 and she'll need to be monitored closely for signs of urinary retention. She'll follow up with Dr. Andrews in 1-2 weeks. She'll follow-up with Dr. Marie at [facility]. Patient seen and examined at bedside. No chest pain, shortness of breath, diarrhea, nausea. Still feeling very weak. Vital signs reviewed and stable. General: non toxic, no distress, appears older than stated age Derm: warm, dry Head: atraumatic, normocephalic, symmetric Eyes: EOMI, no lid lag, anicteric sclera Mouth: no lip lesion, mucus membranes moist Cardiovascular: S1S2 reg, no murmur, positive posterior tibial pulse bilateral, Lungs: CTA bilateral, no rhonchi, no rales , no accessory muscle use Abdominal: soft, nontender to palpation, no guarding, no appreciable organomegaly Ext: no gross muscle atrophy, no edema, no contractures Neuro: CN II-XI grossly intact, no focal neuro deficits Psych: Alert, oriented, easily angered. A total of 35 minutes of time were spent preparing this complex discharge summary . Pertinent Studies: Echocardiogram-ejection fraction 55-60% CTA chest-no evidence of PE, mild fibrotic changes, some subsegmental atelectasis left lung base CT head and cervical spine-cerebral atrophy, spondylitic changes throughout the cervical spine from C3 to C7, no fracture Patient Condition at Discharge: Fair Plan - Discharge Summary Discharge Rx Participant: No New Discharge Prescriptions: New Aspirin 81 mg PO DAILY chew Apixaban [Eliquis] 2.5 mg PO BID tablet Metoprolol Tartrate [Lopressor] 50 mg PO BID tab Continue Calcium Carbonate/Vitamin D3 [Calcium 500-Vit D3 200 Tablet] 1 tab PO DAILY Discharge Medication List Calcium Carbonate/Vitamin D3 [Calcium 500-Vit D3 200 Tablet] 1 tab PO DAILY 05/13/19 [History] Apixaban [Eliquis] 2.5 mg PO BID tablet 05/16/19 [Rx] Aspirin 81 mg PO DAILY chew 05/16/19 [Rx] Metoprolol Tartrate [Lopressor] 50 mg PO BID tab 05/16/19 [Rx] Follow up Appointment(s)/Referral(s): David Marie MD [Primary Care Provider] - 1-2 days Gold Andrews MD [STAFF PHYSICIAN] - 2 Weeks Activity/Diet/Wound Care/Special Instructions: [facility] Diet: regular Activity: As tolerated, fall precautions Patient had urinary retention. Lind catheter removed 05/16 at 10:16 AM. Patient will need to be monitored for urinary retention, will need post void residuals.
[2019-05-16 11:56] LABS: Glucose,Whole Blood 100 mg/dL (75-99)
--- NOTE | 2019-05-16 15:18 | P.PN ---
Subjective Progress Note Date: 05/16/19 This is a pleasant 84-year-old female patient was no significant past medical history, as a matter of fact the patient only receiving vitamin and calcium at home as an outpatient, was brought to the emergency room after she was found on the floor at home and able to get up. The patient somewhat is a poor historian. She stated that she was in her usual state of health where she is able to take care of herself until yesterday when she fell on the floor and attempted to get up but she was unable. She does remember if she did have an episode of syncope or no. But she denies any symptoms of chest pain or chest discomfort, shortness of breath, dizziness, or warm feeling in the face. She was brought to the emergency room by ambulance. In the ER the patient was found to be in atrial fibrillation with RVR and heart rate around 130 beats per minutes. The patient does not recall any history of atrial fibrillation and never seen by a skin tanner in the past. Immediately she was started on Cardizem IV. She continues to be in atrial fibrillation. Beside that she was started on metoprolol by mouth. Also she is on anticoagulation with Lovenox. The echocardiogram was performed and showed normal LV function was mild MR and mild TR. The EKG showed atrial fibrillation with RVR and diffuse nonspecific ST and T wave abnormalities. The CPK came in to be severe lead elevated and the troponin was mildly elevated. The patient possibly did have rhabdomyolysis. The kidney function so far is within normal limits. 05/15/2019 Patient seen and examined this morning, quite confused actually, she states that the skin tanner brought her to the hospital. This is why she came. Continues to be in atrial fibrillation, her rate is under adequate control. Echocardiogram with Doppler study revealed an ejection fraction of 55-60%. We will discontinue the Lovenox today and start the patient on Eliquis. 05/16/2009 Patient was seen sitting up in chair bedside today, overall complaints, quite confused. Arrangements are being made for her to be transferred to [facility] today. Objective - Vital Signs Vital signs: Vital Signs Temp 97.9 F 05/16/19 08:26 Pulse 91 05/16/19 08:26 Resp 16 05/16/19 08:26 BP 131/73 05/16/19 08:26 Pulse Ox 97 05/16/19 08:26 Intake & Output 05/15/19 05/16/19 05/16/19 18:59 06:59 18:59 Intake Total 1180 240 Output Total 2800 1300 Balance 1180 -2800 -1060 Weight 76 kg Intake: Intake, IV Titration 100 Amount Sodium Chloride 0.9% 1, 100 000 ml @ 100 mls/hr IV . Q10H CHRISTINA Rx#:[id number] Oral 1080 240 Output: Urine 2800 1300 Straight 1300 Other: Voiding Method Indwelling Catheter Indwelling Catheter # Voids 1 # Bowel Movements 1 1 - Exam PHYSICAL EXAMINATION: GENERAL: He 4-year-old female in no acute distress at the time of my examination HEENT: Head is atraumatic, normocephalic. Pupils equal, round. Sclera anicteric. Conjunctiva are clear. Mucous membranes of the mouth are moist. Neck is supple. There is no elevated jugular venous pressure. No carotid bruit is heard. HEART EXAMINATION: S1 and S2 irregularly irregular a systolic murmur is heard CHEST EXAMINATION: Was reveal diminished air entry to bilateral bases. ABDOMEN: Soft, nontender. Bowel sounds are heard. No organomegaly noted. EXTREMITIES: 2+ peripheral pulses with no evidence of peripheral edema and no calf tenderness noted. NEUROLOGIC [patient is awake, alert and oriented X1 . - Labs CBC & Chem 7: 05/16/19 06:31 05/16/19 06:31 Labs: Abnormal Lab Results - Last 24 Hours (Table) 05/15/19 05/16/19 05/16/19 Range/Units 21:15 06:31 06:31 RBC 3.39 L (3.80-5.40) m/uL Hgb 10.1 L (11.4-16.0) gm/dL Hct 30.6 L (34.0-46.0) % Sodium 133 L (137-145) mmol/L Creatinine 0.33 L (0.52-1.04) mg/dL POC Glucose (mg/dL) 108 H (75-99) mg/dL Calcium 7.6 L (8.4-10.2) mg/dL AST 44 H (14-36) U/L Creatine Kinase 705 H (30-135) U/L Total Protein 5.1 L (6.3-8.2) g/dL Albumin 2.6 L (3.5-5.0) g/dL 05/16/19 Range/Units 11:54 RBC (3.80-5.40) m/uL Hgb (11.4-16.0) gm/dL Hct (34.0-46.0) % Sodium (137-145) mmol/L Creatinine (0.52-1.04) mg/dL POC Glucose (mg/dL) 100 H (75-99) mg/dL Calcium (8.4-10.2) mg/dL AST (14-36) U/L Creatine Kinase (30-135) U/L Total Protein (6.3-8.2) g/dL Albumin (3.5-5.0) g/dL Microbiology - Last 24 Hours (Table) 05/13/19 21:36 Blood Culture - Preliminary Blood No Growth after 48 hours 05/14/19 12:35 Urine Culture - Final Urine,Catheterized Assessment and Plan Plan: Assessment #1 atrial fibrillation with RVR, this is new to the patient. Persistent. #2 rhabdomyolysis #3 mildly abnormal troponin Plan Echocardiogram with Doppler study revealed a normal left ventricular systolic function. Arrangements are being made for the patient to transfer to rehab today. DNP note has been reviewed, I agree with a documented findings and plan of care. Patient was seen and examined.
[2019-05-16 16:11] LABS: Iron Saturation 17.13 (12.00-45.00)
== END 2019-05-16 13:15 | DRG 558 ==
LOC: EC 17:28 → 3SCARD 20:32
PROVIDERS: ADMIT Family Medicine; ATTEND Family Medicine
DX: M62.82 Rhabdomyolysis (principal); I48.1 Persistent atrial fibrillation; E87.2 Acidosis; E87.1 Hypo-osmolality and hyponatremia; J84.10 Pulmonary fibrosis, unspecified; E86.0 Dehydration; I08.1 Rheumatic disorders of both mitral and tricuspid valves; D72.829 Elevated white blood cell count, unspecified; F43.9 Reaction to severe stress, unspecified; M25.561 Pain in right knee; M25.562 Pain in left knee; R33.9 Retention of urine, unspecified; R77.8 Other specified abnormalities of plasma proteins; Z79.899 Other long term (current) drug therapy; Z87.891 Personal history of nicotine dependence; Z90.11 Acquired absence of right breast and nipple; Z90.49 Acquired absence of other specified parts of digestive tract; Z85.3 Personal history of malignant neoplasm of breast; Z83.49 Family history of other endocrine, nutritional and metabolic diseases; W18.30XA Fall on same level, unspecified, initial encounter
CPT/HCPCS: 36415; 70450; 71046; 71275; 72125; 72170; 80053; 81001; 82550; 82553; 82728; 83540; 83550; 83605; 83735; 83880; 84100; 84443; 84484; 85025; 85027; 85379; 85610; 85730; 87040; 87086; 93005; 93306; 96361; 96365; 96366; 96376; 99285

== ENCOUNTER 2022-02-05 06:14 | Inpatient (IN) | payer MEDICARE, OTHER ==
[2022-02-05] MEDS ORDERED: SODIUM CHLORIDE 0.9% 500 ML 500 ML IV STA (06:21)
--- NOTE | 2022-02-05 06:32 | ED ---
Fall HPI <Narciso Adamson - Last Filed: 02/05/22 08:22> - General Source: patient, EMS, RN notes reviewed, old records reviewed Mode of arrival: EMS Limitations: altered mental status (dementia), physical limitation - History of Present Illness MD Complaint: fall -: hour(s) Fall From: standing When Fall Occurred: 1 hour PLAST[employer] Fall Witnessed: yes, by living facility staff Place Fall Occurred: [facility] Loss of Consciousness: none Prolonged Down Time?: no Symptoms Prior to Fall: none Location: head, face Severity: mild Severity scale (1-10): 2 Context: tripped/slipped Associated Symptoms: denies <Narciso Carrion - Last Filed: 02/05/22 21:47> - General Chief Complaint: Fall Stated Complaint: Fall Time Seen by Provider: 02/05/22 06:15 - History of Present Illness Initial Comments: This is an 87-year-old female to the ER for evaluation. Patient is a poor strain secondary to underlying dementia so history is obtained from patient's chart. Patient had a fall from standing unknown events surrounding patient's fall she is on blood thinners for atrial fibrillation. Patient is currently without complaint EMS was called by nursing staff. Patient was noted to have a mild nosebleed originally but that is also resolved. (Narciso Carrion) - Related Data Home Medications Medication Instructions Recorded Confirmed Calcium Carbonate/Vitamin D3 1 tab PO DAILY@0800 05/13/19 02/05/22 [Calcium 500-Vit D3 5 Mcg (200 Iu)] ALPRAZolam [Xanax] 0.25 mg PO BID PRN 02/05/22 02/05/22 Acetaminophen [Tylenol] 650 mg PO Q4H PRN 02/05/22 02/05/22 Apixaban [Eliquis] 5 mg PO BID@0800,1700 02/05/22 02/05/22 Mag Hydrox/Al Hydrox/Simeth 30 ml PO Q6H PRN 02/05/22 02/05/22 [Maalox] Magnesium Hydroxide [Milk of 7,200 mg PO DAILY PRN 02/05/22 02/05/22 Magnesia Concentrate] Memantine [Namenda] 5 mg PO HS 02/05/22 02/05/22 Metoprolol Tartrate [Lopressor] 50 mg PO BID@0800,1700 02/05/22 02/05/22 Mirtazapine 7.5 mg PO HS@209902/05/22 02/05/22 Na Phos,M-B/Na Phos,Di-Ba [Fleet 133 ml RECTAL DAILY PRN 02/05/22 02/05/22 Adult] Sennosides/Docusate Sodium [Senna 2 cap PO HS@209902/05/22 02/05/22 Plus 8.6-50 mg Softgel] Vit C/E/Zn/Coppr/Lutein/Zeaxan 1 cap PO BID@0800,1700 02/05/22 02/05/22 [Preservision Areds 2 Softgel] bisacodyL [Dulcolax] 10 mg RECTAL DAILY PRN 02/05/22 02/05/22 traZODone HCL 25 mg PO HS@209902/05/22 02/05/22 Allergies Allergy/AdvReac Type Severity Reaction Status Date / Time No Known Allergies Allergy Verified 02/05/22 13:40 Review of Systems ROS Other: All systems not noted in ROS Statement are negative. <Narciso Adamson - Last Filed: 02/05/22 08:22> ROS Other: All systems not noted in ROS Statement are negative. <Narciso Carrion - Last Filed: 02/05/22 21:47> ROS Statement: Those systems with pertinent positive or pertinent negative responses have been documented in the HPI. Past Medical History Past Medical History: Dementia, Osteoarthritis (OA) Additional Past Medical History / Comment(s): RT breast CA (previous.) History of Any Multi-Drug Resistant Organisms: None Reported Past Surgical History: Appendectomy Additional Past Surgical History / Comment(s): Rt sided mastectomy Past Anesthesia/Blood Transfusion Reactions: No Reported Reaction Past Psychological History: Depression Smoking Status: Unknown if ever smoked Past Alcohol Use History: None Reported Past Drug Use History: None Reported - Past Family History Mother History Unknown: Yes Father History Unknown: Yes Family Medical History: Hyperlipidemia <Narciso Carrion - Last Filed: 02/05/22 21:47> General Exam General appearance: alert, in no apparent distress Head exam: Present: atraumatic, normocephalic, normal inspection Eye exam: Present: normal appearance, PERRL, EOMI. Absent: scleral icterus, conjunctival injection, periorbital swelling ENT exam: Present: normal exam, mucous membranes moist Neck exam: Present: normal inspection. Absent: tenderness, meningismus, lymphadenopathy Respiratory exam: Present: normal lung sounds bilaterally. Absent: respiratory distress, wheezes, rales, rhonchi, stridor Cardiovascular Exam: Present: regular rate, normal rhythm, normal heart sounds. Absent: systolic murmur, diastolic murmur, rubs, gallop, clicks GI/Abdominal exam: Present: soft, normal bowel sounds. Absent: distended, tenderness, guarding, rebound, rigid Extremities exam: Present: normal inspection, full ROM, normal capillary refill. Absent: tenderness, pedal edema, joint swelling, calf tenderness Back exam: Present: normal inspection Neurological exam: Present: alert, oriented X3, CN II-XII intact Psychiatric exam: Present: normal affect, normal mood Skin exam: Present: warm, dry, intact, normal color. Absent: rash <Narciso Carrion - Last Filed: 02/05/22 21:47> - General Exam Comments Initial Comments: Dementia GCS 15 no complaints (Narciso Carrion) Course <Narciso Carrion - Last Filed: 02/05/22 21:47> Vital Signs 02/05/22 06:16 Pulse Rate 69 Respiratory 16 Rate Blood Pressure 112/54 O2 Sat by Pulse 98 Oximetry - Reevaluation(s) Reevaluation #1: 02/05/22 07:28 Medical records reviewed (Narciso Carrion) Reevaluation #2: 02/05/22 07:28 Patient continues to remain without specific complaint (Narciso Carrion) Reevaluation #3: 02/05/22 07:28 Blood pressure initially low on EMS arrival that is improved with hydration here in the ER. (Narciso Carrion) Medical Decision Making - Lab Data Result diagrams: 02/05/22 06:39 02/05/22 06:39 <Narciso Adamson - Last Filed: 02/05/22 08:22> - Lab Data Result diagrams: 02/05/22 06:39 02/05/22 06:39 - EKG Data -: EKG Interpreted by Me (EKG sinus rhythm 71 WV 204 QRS 90 QTC 467) - Radiology Data Radiology results: report reviewed (CT brain Cspine possible nasal bone fx and C6 fx, CXR XR pelvis negative for acute disease), image reviewed <Narciso Carrion - Last Filed: 02/05/22 21:47> - Medical Decision Making Computed tomography scan of the C-spine shows anterior inferior corner of the C6 vertebrae is fractured. Patient also has a nasal bone fracture that is minimally displaced I spoke with Dr. Larsen who stated that the patient should be admitted and placed the patient in a hard collar and the patient will be admitted to Dr. Funez whom Dr. Larsen spoke to (Narciso Adamson) 87 female to the emergency department status post fall on Coumadin standing level fall on Coumadin. CT brain C-spine positive for possible C6 fracture from traumatic injury. X-rays are negative for genetic injury lab values are normal. Patient not requiring anything for pain remains in C collar (Narciso Carrion) - Lab Data Lab Results 02/05/22 02/05/22 02/05/22 Range/Units 06:39 06:39 06:39 WBC 10.9 H (3.8-10.6) k/uL RBC 3.97 (3.80-5.40) m/uL Hgb 12.1 (11.4-16.0) gm/dL Hct 37.4 (34.0-46.0) % MCV 94.4 (80.0-100.0) fL MCH 30.5 (25.0-35.0) pg MCHC 32.4 (31.0-37.0) g/dL RDW 13.9 (11.5-15.5) % Plt Count 178 (150-450) k/uL MPV 9.7 Neutrophils % 63 % Lymphocytes % 26 % Monocytes % 6 % Eosinophils % 2 % Basophils % 1 % Neutrophils # 6.9 (1.3-7.7) k/uL Lymphocytes # 2.8 (1.0-4.8) k/uL Monocytes # 0.7 (0-1.0) k/uL Eosinophils # 0.3 (0-0.7) k/uL Basophils # 0.1 (0-0.2) k/uL PT 11.5 (9.0-12.0) sec INR 1.1 (<1.2) APTT 19.8 L (22.0-30.0) sec Sodium 138 (137-145) mmol/L Potassium 4.0 (3.5-5.1) mmol/L Chloride 109 H (98-107) mmol/L Carbon Dioxide 25 (22-30) mmol/L Anion Gap 4 mmol/L BUN 13 (7-17) mg/dL Creatinine 0.69 (0.52-1.04) mg/dL Est GFR (CKD-EPI)AfAm >90 (>60 ml/min/1.73 sqM) Est GFR (CKD-EPI)NonAf 79 (>60 ml/min/1.73 sqM) Glucose 122 H (74-99) mg/dL Lactic Ac Sepsis Rflx Plasma Lactic Acid Travis (0.7-2.0) mmol/L Calcium 8.4 (8.4-10.2) mg/dL Phosphorus 3.6 (2.5-4.5) mg/dL Magnesium 1.9 (1.6-2.3) mg/dL Total Bilirubin 0.6 (0.2-1.3) mg/dL AST 24 (14-36) U/L ALT 13 (4-34) U/L Alkaline Phosphatase 103 (38-126) U/L Troponin I (0.000-0.034) ng/mL NT-Pro-B Natriuret Pep pg/mL Total Protein 6.5 (6.3-8.2) g/dL Albumin 3.3 L (3.5-5.0) g/dL 02/05/22 02/05/22 02/05/22 Range/Units 06:39 06:39 06:39 WBC (3.8-10.6) k/uL RBC (3.80-5.40) m/uL Hgb (11.4-16.0) gm/dL Hct (34.0-46.0) % MCV (80.0-100.0) fL MCH (25.0-35.0) pg MCHC (31.0-37.0) g/dL RDW (11.5-15.5) % Plt Count (150-450) k/uL MPV Neutrophils % % Lymphocytes % % Monocytes % % Eosinophils % % Basophils % % Neutrophils # (1.3-7.7) k/uL Lymphocytes # (1.0-4.8) k/uL Monocytes # (0-1.0) k/uL Eosinophils # (0-0.7) k/uL Basophils # (0-0.2) k/uL PT (9.0-12.0) sec INR (<1.2) APTT (22.0-30.0) sec Sodium (137-145) mmol/L Potassium (3.5-5.1) mmol/L Chloride (98-107) mmol/L Carbon Dioxide (22-30) mmol/L Anion Gap mmol/L BUN (7-17) mg/dL Creatinine (0.52-1.04) mg/dL Est GFR (CKD-EPI)AfAm (>60 ml/min/1.73 sqM) Est GFR (CKD-EPI)NonAf (>60 ml/min/1.73 sqM) Glucose (74-99) mg/dL Lactic Ac Sepsis Rflx Plasma Lactic Acid Travis 2.4 H* (0.7-2.0) mmol/L Calcium (8.4-10.2) mg/dL Phosphorus (2.5-4.5) mg/dL Magnesium (1.6-2.3) mg/dL Total Bilirubin (0.2-1.3) mg/dL AST (14-36) U/L ALT (4-34) U/L Alkaline Phosphatase (38-126) U/L Troponin I <0.012 (0.000-0.034) ng/mL NT-Pro-B Natriuret Pep 719 pg/mL Total Protein (6.3-8.2) g/dL Albumin (3.5-5.0) g/dL 02/05/22 Range/Units 07:48 WBC (3.8-10.6) k/uL RBC (3.80-5.40) m/uL Hgb (11.4-16.0) gm/dL Hct (34.0-46.0) % MCV (80.0-100.0) fL MCH (25.0-35.0) pg MCHC (31.0-37.0) g/dL RDW (11.5-15.5) % Plt Count (150-450) k/uL MPV Neutrophils % % Lymphocytes % % Monocytes % % Eosinophils % % Basophils % % Neutrophils # (1.3-7.7) k/uL Lymphocytes # (1.0-4.8) k/uL Monocytes # (0-1.0) k/uL Eosinophils # (0-0.7) k/uL Basophils # (0-0.2) k/uL PT (9.0-12.0) sec INR (<1.2) APTT (22.0-30.0) sec Sodium (137-145) mmol/L Potassium (3.5-5.1) mmol/L Chloride (98-107) mmol/L Carbon Dioxide (22-30) mmol/L Anion Gap mmol/L BUN (7-17) mg/dL Creatinine (0.52-1.04) mg/dL Est GFR (CKD-EPI)AfAm (>60 ml/min/1.73 sqM) Est GFR (CKD-EPI)NonAf (>60 ml/min/1.73 sqM) Glucose (74-99) mg/dL Lactic Ac Sepsis Rflx Y Plasma Lactic Acid Travis (0.7-2.0) mmol/L Calcium (8.4-10.2) mg/dL Phosphorus (2.5-4.5) mg/dL Magnesium (1.6-2.3) mg/dL Total Bilirubin (0.2-1.3) mg/dL AST (14-36) U/L ALT (4-34) U/L Alkaline Phosphatase (38-126) U/L Troponin I (0.000-0.034) ng/mL NT-Pro-B Natriuret Pep pg/mL Total Protein (6.3-8.2) g/dL Albumin (3.5-5.0) g/dL Critical Care Time Critical Care Time: Yes Total Critical Care Time: 31 <Narciso Carrion - Last Filed: 02/05/22 21:47> Disposition Time of Disposition: 08:23 <Narciso Adamson - Last Filed: 02/05/22 08:22> Is patient prescribed a controlled substance at d/c from ED?: No <Narciso Carrion - Last Filed: 02/05/22 21:47> Clinical Impression: Fall, C6 cervical fracture, Nasal bone fracture Disposition: ADMITTED IP TO THIS HOSP Condition: Fair
[2022-02-05 06:56] LABS: Basophils # (A) 0.1 k/uL (0-0.2); Basophils % (A) 1 %; Eosinophils # (A) 0.3 k/uL (0-0.7); Eosinophils % (A) 2 %; HCT 37.4 % (34.0-46.0); HGB 12.1 gm/dL (11.4-16.0); Lymphocytes # (A) 2.8 k/uL (1.0-4.8); Lymphocytes % (A) 26 %; MCH 30.5 pg (25.0-35.0); MCHC 32.4 g/dL (31.0-37.0); MCV 94.4 fL (80.0-100.0); Mean Platelet Volume 9.7; Monocytes # (A) 0.7 k/uL (0-1.0); Monocytes % (A) 6 %; Neutrophils # (A) 6.9 k/uL (1.3-7.7); Neutrophils % (A) 63 %; Platelet Count 178 k/uL (150-450); RBC 3.97 m/uL (3.80-5.40); RDW 13.9 % (11.5-15.5); WBC 10.9 k/uL (3.8-10.6)
--- NOTE | 2022-02-05 07:06 | XR ---
EXAMINATION TYPE: XR chest 1V portable DATE OF EXAM: 02/05/2022 COMPARISON: 05/13/2019 HISTORY: Fall TECHNIQUE: Single frontal view of the chest is obtained. FINDINGS: There is mild pulmonary vascular congestion. There is no airspace opacity, pneumothorax or pleural effusion. Heart size normal. There is marked degeneration of the right glenohumeral joint ot herwise the osseous structures are intact. Metallic clips the right axilla which were seen previously . IMPRESSION: Suggestion of mild pulmonary vascular congestion possibly indicate mild CHF and short-term follow-up suggested.
--- NOTE | 2022-02-05 07:07 | XR ---
Single view pelvis HISTORY: Fall COMPARISON: 05/13/2019 TECHNIQUE: Single AP view the pelvis is obtained. FINDINGS: There are bilateral hip prostheses. The osseous structures are diffusely osteopenic. There is no evid ence of acute fracture. There is no hip dislocation. There is no interval change previous. IMPRESSION: Bilateral hip prostheses. There is no evidence of acute trauma.
[2022-02-05 07:10] LABS: INR 1.1 (<1.2); Prothrombin Time 11.5 sec (9.0-12.0)
[2022-02-05 07:23] LABS: ALT 13 U/L (4-34); AST 24 U/L (14-36); African American GFR (CKD) >90 (>60 ml/min/1.73 sqM); Albumin 3.3 g/dL (3.5-5.0); Alkaline Phosphatase 103 U/L (38-126); Anion Gap 4 mmol/L; Blood Urea Nitrogen 13 mg/dL (7-17); Calcium 8.4 mg/dL (8.4-10.2); Carbon Dioxide 25 mmol/L (22-30); Chloride 109 mmol/L (98-107); Glucose 122 mg/dL (74-99); Magnesium 1.9 mg/dL (1.6-2.3); Non-African American GFR(CKD) 79 (>60 ml/min/1.73 sqM); Phosphorus 3.6 mg/dL (2.5-4.5); Sodium 138 mmol/L (137-145); Total Bilirubin 0.6 mg/dL (0.2-1.3); Total Protein 6.5 g/dL (6.3-8.2)
[2022-02-05 07:28] LABS: Partial Thromboplastin Time 19.8 sec (22.0-30.0)
--- NOTE | 2022-02-05 07:30 | CT ---
EXAMINATION TYPE: CT brain flora daniel con DATE OF EXAM: 02/05/2022 COMPARISON: None HISTORY: Fall CT DLP: 1151.2 mGycm Automated exposure control for dose reduction was used. TECHNIQUE: CT scan of the head and cervical spine are performed without contrast. FINDINGS: There is no acute intracranial hemorrhage, mass effect, or midline shift identified. The ventricles, basal cisterns and sulci over the convexities are markedly enlarged consistent with marke d atrophy. The globes are intact and the visualized sinuses are clear. The craniovertebral junction relationships are normal although there are degenerative changes of the C1-C2 articulation. There is mild prevertebral soft tissue swelling or cervical spine there is an acu te nondisplaced corner fracture anterior inferior C6 vertebral segment. Bony cervical canal is patent . There is marked degenerative disc disease at the C3-4, C4-5 and C5-6 levels. IMPRESSION: 1. Marked degenerative changes in the cervical spine. 2. Acute anterior inferior corner fracture of C6 3. Marked atrophy within the brain but no acute bleed or mass effect.
--- NOTE | 2022-02-05 07:34 | CT ---
EXAMINATION TYPE: CT facial bones wo con DATE OF EXAM: 02/05/2022 COMPARISON: None HISTORY: Fall CT DLP: included in DLP of Brain/Cspine mGycm Automated exposure control for dose reduction was used. TECHNIQUE: CT scan of the sinuses is performed without contrast, axial images are obtained, coronal r eformatted images are also reviewed. FINDINGS: There is a minimally displaced nasal bone fracture. Remaining osseous structures of the fac e are intact. There are mild chronic inflammatory changes in this sphenoid and right maxillary sinus otherwise the sinuses are well aerated. The intraorbital contents are normal and symmetric. IMPRESSION: Minimally displaced nasal bone fracture and mild chronic inflammatory changes right maxil tanmay sphenoid sinus. There are no orbital rim fractures and the intraorbital contents are normal and symmetric.
[2022-02-05] MEDS: HYDROmorphone 0.5 MG/0.5 ML SYRINGE IVP PRN ×3 (09:47→20:34)
--- NOTE | 2022-02-05 10:48 | P.CONS ---
History of Present Illness - Reason for Consult Consult date: 02/05/22 Medical clearance for surgery medical management. Requesting physician: Jimi Funez - Chief Complaint Post fall with cervical spine fracture. - History of Present Illness HISTORY OF PRESENT ILLNESS 87-year-old female one of my patient in [facility] was known to have history of right-sided breast cancer, history of dementia and atrophy fibrillation has been long-term patient in [facility] for long time. Apparently patient had a fall from standing in her room in [facility] sometimes early this morning developed to have nosebleed and quite bed pain and discomfort left hip area along with neck pain. Patient was transferred to the emergency department at [facility] where was seen and evaluated,X-ray of the chest showed mild pulmonary vascular congestion with mild congestive heart failure but no other abnormality. Pelvic x-ray showed bilateral hip prosthesis with no evidence of trauma or fracture. CT of the brain and the spine showed marked degenerative change in the cervical spine with acute anterior inferior corner fracture of the cervical spine 6 and marked atrophy of the brain with no major bleed. Patient laboratory value showed normal kidney function lactic acid was high at 2.4 still pending urine test at this point. CBC showed WBC of 10.9 with hemoglobin of 12.1 and hematocrit 37.4 platelet count 178. Patient was hospitalized under Dr. Funez service not a clear whether she is to go for surgery or not. Resume her home meds patient is a clear for surgery from medical standpoint no need for any further procedure testing. Will be waiting for her urine test if positive start on antibiotics EKG was done and even though patient is in A. fib status this EKG came back with sinus rhythm. REVIEW OF SYSTEMS Constitutional: No fever, no chills, no night sweats. No weight change. No weakness, fatigue or lethargy. No daytime sleepiness. EENT: Slight nosebleed, significant cervical spine pain in the posterior area more than the anterior area this point. No headache. No blurred vision or double vision, no loss of vision. No loss of Hearing, no ringing in the ears, no dizziness. No nasal drainage or congestion. No epistaxis. No sore throat. Lungs: No shortness of breath, cough, no sputum production. No wheezing. Cardiovascular: History of atrial fibrillation but No chest pain, no lower extremity edema. No palpitations. No paroxysmal nocturnal dyspnea. No orthopnea. No lightheadedness or dizziness. No syncopal episodes. Abdominal: No abdominal pain. No nausea, vomiting. No diarrhea. No constipation. No bloody or tarry stools.. No loss of appetite. Genitourinary: No dysuria, increased frequency, urgency. No urinary retention. Musculoskeletal: No myalgias. No muscle weakness, no gait dysfunction, no frequent falls. No back pain. Positive neck pain positive left hip pain with no sign of fracture in the hip. Integumentary: No wounds, no lesions. No rash or pruritus. No unusual bruising. No change in hair or nails. Neurologic: No aphasia. No facial droop. No change in mentation. No head injury. No headache. No paralysis. No paresthesia. Psychiatric: No depression. No anxiety. No mood swings. Significant dementia. Endocrine: No abnormal blood sugars. No weight change. No excessive sweating or thirst. No cold intolerance. SOCIAL HISTORY No smoking, no alcohol abuse, patient is has been permanent resident in [facility] for the last 10 years. FAMILY HISTORY CAD, diabetes hypertension. PHYSICAL EXAMINATION Gen: This is elderly mildly confused still have slight nostril bleed with heart cervical spine brace at this point does not look in any respiratory distress. HEENT: Head is atraumatic, normocephalic. Pupils equal, round. Sclerae is anicteric. NECK: Had C-spine hard collar, no lymph node enlargement. LUNGS: Clear to auscultation. No wheezes or rhonchi. No intercostal retractions. HEART: Regular rate and rhythm. Positive systolic murmur, S1-S2 positive S3 ABDOMEN: Soft. Bowel sounds are present. No masses. No tenderness. EXTREMITIES: Scar tissue from hip surgery bilaterally left leg alignment clear with no sign of fracture clinically mild arthritis of the knees. NEUROLOGICAL: Patient is awake, alert and oriented with significant confusion Cranial nerves 2 through 12 are grossly intact. ASSESSMENT AND PLAN 1. C-spine 6 fracture: Patient was hospitalized will continue cervical collar protection at this point, patient is seen orthopedic whether she can go for surgery or not to be determined by them at this point. 2 post fall with cervical spine fracture with no other orthopedic fracture this point. This be careful with the left hip specially when we are able to ambulate patient if continued to complain of pain may be CAT scan of the hip will be done. 3 A. fib: Patient has been 2.5 mg twice a day along with metoprolol tartrate 50 mg twice a day resume metoprolol but will hold all request for now. 4 history of dementia: Mostly Alzheimer disease not on any medication at this point. 5 recurrent UTI: UA and culture will be done. 6 GI prophylaxis: Patient will be on Pepcid 20 mg daily. 7 DVT prophylaxis: Patient was on anticoagulation will use knee-high RANI hose and Venodyne boots. CODE STATUS: Full code. Dr. Funez thank you much for the consult and don't see any absolute cont raindication for surgery patient does not need or require any further testing before any cervical spine surgery we will hold off on her anticoagulation for 48 hours before going for surgery if needed. If I can be any further help to please let me know. Past Medical History Past Medical History: Dementia, Osteoarthritis (OA) Additional Past Medical History / Comment(s): RT breast CA (previous.) History of Any Multi-Drug Resistant Organisms: None Reported Past Surgical History: Appendectomy Additional Past Surgical History / Comment(s): Rt sided mastectomy Past Anesthesia/Blood Transfusion Reactions: No Reported Reaction Past Psychological History: Depression Smoking Status: Unknown if ever smoked Past Alcohol Use History: None Reported Past Drug Use History: None Reported - Past Family History Mother History Unknown: Yes Father History Unknown: Yes Family Medical History: Hyperlipidemia Medications and Allergies Home Medications Medication Instructions Recorded Confirmed Type Calcium Carbonate/Vitamin D3 1 tab PO DAILY 05/13/19 05/13/19 History [Calcium 500-Vit D3 5 Mcg (200 Iu)] Apixaban [Eliquis] 2.5 mg PO BID tablet 05/16/19 Rx Aspirin 81 mg PO DAILY chew 05/16/19 Rx Metoprolol Tartrate [Lopressor] 50 mg PO BID tab 05/16/19 Rx Allergies Allergy/AdvReac Type Severity Reaction Status Date / Time No Known Allergies Allergy Verified 05/13/19 18:20 Physical Exam Vitals: Vital Signs Pulse Resp BP Pulse Ox 02/05/22 09:32 72 18 108/56 98 02/05/22 06:16 69 16 112/54 98 Intake and Output 02/04/22 02/05/22 02/05/22 22:59 06:59 14:59 Other: Weight 81.647 kg Results CBC & Chem 7: 02/05/22 06:39 02/05/22 06:39 Labs: Abnormal Lab Results - Last 24 Hours (Table) 02/05/22 02/05/22 02/05/22 Range/Units 06:39 06:39 06:39 WBC 10.9 H (3.8-10.6) k/uL APTT 19.8 L (22.0-30.0) sec Chloride 109 H (98-107) mmol/L Glucose 122 H (74-99) mg/dL Plasma Lactic Acid Travis (0.7-2.0) mmol/L Albumin 3.3 L (3.5-5.0) g/dL 02/05/22 Range/Units 06:39 WBC (3.8-10.6) k/uL APTT (22.0-30.0) sec Chloride (98-107) mmol/L Glucose (74-99) mg/dL Plasma Lactic Acid Travis 2.4 H* (0.7-2.0) mmol/L Albumin (3.5-5.0) g/dL
--- NOTE | 2022-02-05 11:14 | P.HPOR ---
<TeresoAlberta - Last Filed: 02/05/22 11:01> History of Present Illness H&P Date: 02/05/22 Chief Complaint: Cervical fracture, status post fall This is an 87-year-old female who resides at [facility] on the dementia care unit. She was found on the floor earlier this morning after an unwitnessed fall. She was found face down and had bleeding from her nose. She had complaint of facial and neck pain. She was brought to the emergency department via EMS. She was found to have an anterior/inferior C6 fracture as well as a nasal bone fracture. On initial evaluation by the emergency department she was found to be neurologically intact and moving all of her extremities. We were consulted for orthopedic spine evaluation and she is admitted to our service for further assessment and care. The patient is a poor historian and there are no halfway records available at this time. I also have not been able to contact the patient's family. The nurse was able to speak with someone at the halfway for some history. Eliquis is listed in her medications, however, the patient is currently not taking any blood thinners according to the halfway staff. Past Medical History Past Medical History: Dementia, Osteoarthritis (OA) Additional Past Medical History / Comment(s): RT breast CA (previous.) History of Any Multi-Drug Resistant Organisms: None Reported Past Surgical History: Appendectomy Additional Past Surgical History / Comment(s): Rt sided mastectomy Past Anesthesia/Blood Transfusion Reactions: No Reported Reaction Past Psychological History: Depression Smoking Status: Unknown if ever smoked Past Alcohol Use History: None Reported Past Drug Use History: None Reported - Past Family History Mother History Unknown: Yes Father History Unknown: Yes Family Medical History: Hyperlipidemia Medications and Allergies Home Medications Medication Instructions Recorded Confirmed Type Calcium Carbonate/Vitamin D3 1 tab PO DAILY@0800 05/13/19 02/05/22 History [Calcium 500-Vit D3 5 Mcg (200 Iu)] ALPRAZolam [Xanax] 0.25 mg PO BID PRN 02/05/22 02/05/22 History Acetaminophen [Tylenol] 650 mg PO Q4H PRN 02/05/22 02/05/22 History Apixaban [Eliquis] 5 mg PO BID@0800,1700 02/05/22 02/05/22 History Mag Hydrox/Al Hydrox/Simeth 30 ml PO Q6H PRN 02/05/22 02/05/22 History [Maalox] Magnesium Hydroxide [Milk of 7,200 mg PO DAILY PRN 02/05/22 02/05/22 History Magnesia Concentrate] Memantine [Namenda] 5 mg PO HS 02/05/22 02/05/22 History Metoprolol Tartrate [Lopressor] 50 mg PO BID@0800,1700 02/05/22 02/05/22 History Mirtazapine 7.5 mg PO HS@209902/05/22 02/05/22 History Na Phos,M-B/Na Phos,Di-Ba [Fleet 133 ml RECTAL DAILY PRN 02/05/22 02/05/22 History Adult] Sennosides/Docusate Sodium [Senna 2 cap PO HS@209902/05/22 02/05/22 History Plus 8.6-50 mg Softgel] Vit C/E/Zn/Coppr/Lutein/Zeaxan 1 cap PO BID@0800,1700 02/05/22 02/05/22 History [Preservision Areds 2 Softgel] bisacodyL [Dulcolax] 10 mg RECTAL DAILY PRN 02/05/22 02/05/22 History traZODone HCL 25 mg PO HS@209902/05/22 02/05/22 History Allergies Allergy/AdvReac Type Severity Reaction Status Date / Time No Known Allergies Allergy Verified 02/05/22 13:40 Physical Examination This is an 87-year-old female in no acute distress. She is confused at this time. She is oriented to person only. She does not recall falling and is unable to provide any of her history. She has significant hearing impairment. Exam of the head neck reveal that the patient is in a EMS hard collar. There is no facial deformity noted. No open wounds or abrasions. Exam of the upper extremities reveals full motion to the right elbow, wrist and fingers. She initially was unable/unwilling to move her left arm or wiggle her fingers on her left hand. Upon repeat assessment, the patient was able to wiggle her fingers a little bit on the left hand. She did have difficulty follo wing commands. She complains of severe pain to both upper extremities throughout the exam. Radial pulses are +2/4 bilaterally. Capillary refill is less than 3 seconds. Exam of the lower extremities reveals slight valgus deformity to both knees. There is some ecchymosis to the anterior aspect of the right knee. She is able to move the legs freely in bed. She has full foot and ankle motion bilaterally. No obvious pain with hip motion. Pedal pulses are +2/4 bilaterally. Neurovascular status to the lower extremities is intact. Results Computed tomography scan of the face reveals a nasal bone fracture area orbits are intact. CT of the cervical spine reveals an anterior/inferior C6 fracture. Multilevel degenerative changes noted. CT of the brain with contrast reveals no acute infarct or bleed. Age-related atrophy noted. X-rays of the pelvis reveals no acute fracture noted. Bilateral total hip replacement components intact with no evidence of loosening or displacement. - Labs Labs: Abnormal Lab Results - Last 24 Hours (Table) 02/05/22 02/05/22 02/05/22 Range/Units 06:39 06:39 06:39 WBC 10.9 H (3.8-10.6) k/uL APTT 19.8 L (22.0-30.0) sec Chloride 109 H (98-107) mmol/L Glucose 122 H (74-99) mg/dL Plasma Lactic Acid Travis (0.7-2.0) mmol/L Albumin 3.3 L (3.5-5.0) g/dL 02/05/22 Range/Units 06:39 WBC (3.8-10.6) k/uL APTT (22.0-30.0) sec Chloride (98-107) mmol/L Glucose (74-99) mg/dL Plasma Lactic Acid Travis 2.4 H* (0.7-2.0) mmol/L Albumin (3.5-5.0) g/dL H & H 02/05/22 Range/Units 06:39 Hgb 12.1 (11.4-16.0) gm/dL Hct 37.4 (34.0-46.0) % Coagulation 02/05/22 Range/Units 06:39 INR 1.1 (<1.2) Result Diagrams: 02/05/22 06:39 02/05/22 06:39 Assessment and Plan (1) Bilateral arm pain Current Visit: Yes Status: Acute Code(s): M79.601 - PAIN IN RIGHT ARM; M79.602 - PAIN IN LEFT ARM SNOMED Code(s): 454694229 (2) C6 cervical fracture Current Visit: Yes Status: Acute Code(s): S12.500A - UNSP DISP FX OF SIXTH CERVICAL VERTEBRA, INIT FOR CLOS FX SNOMED Code(s): 217617504 (3) Weakness Current Visit: No Status: Acute Code(s): R53.1 - WEAKNESS SNOMED Code(s): 81880174 Plan: G clinical and radiographic findings are discussed with the patient and nursing staff. I have reviewed the case with Dr. Larsen and Dr. Funez. With the patient's severe pain in both arms and difficulty moving the left upper extremity, it is recommended she have MRI for further evaluation of the cervical spine and spinal cord. I have obtained an [place] hard collar which we will place on the patient after her MRI today. The patient will be evaluated by Dr. Funez later today. <Jimi Funez - Last Filed: 02/05/22 14:58> Physical Examination Osteopathic Statement: *. No significant issues noted on an osteopathic structural exam other than those noted in the History and Physical/Consult. Results - Labs Labs: Abnormal Lab Results - Last 24 Hours (Table) 02/05/22 02/05/22 02/05/22 Range/Units 06:39 06:39 06:39 WBC 10.9 H (3.8-10.6) k/uL APTT 19.8 L (22.0-30.0) sec Chloride 109 H (98-107) mmol/L Glucose 122 H (74-99) mg/dL Plasma Lactic Acid Travis (0.7-2.0) mmol/L Albumin 3.3 L (3.5-5.0) g/dL 02/05/22 Range/Units 06:39 WBC (3.8-10.6) k/uL APTT (22.0-30.0) sec Chloride (98-107) mmol/L Glucose (74-99) mg/dL Plasma Lactic Acid Travis 2.4 H* (0.7-2.0) mmol/L Albumin (3.5-5.0) g/dL H & H 02/05/22 Range/Units 06:39 Hgb 12.1 (11.4-16.0) gm/dL Hct 37.4 (34.0-46.0) % Coagulation 02/05/22 Range/Units 06:39 INR 1.1 (<1.2) Result Diagrams: 02/05/22 06:39 02/05/22 06:39 Assessment and Plan Plan: The patient was seen and examined today at bedside. I discussed the patient with any Rider and I agree with her today patient above. The patient is currently not complaining of any pain at all at her neck. She is not complaining of neck pain. Her main complaint is that at her right middle finger. She says her hand is hurting her quite a bit primarily at the knuckle of her right middle finger. She is afebrile stable vital signs. Exam of her cervical spine she has good motion of her cervical spine without any pain. She is nontender around her neck. She is nontender along the benign of her cervical and thoracic spine. She has some bruising at her face. At her upper extremities she has good motion and her hands and fingers. She has full active and passive range of motion as expected for her age and her hands fingers and wrists elbows and shoulders. She does not them and straight any focal motor deficit at her extremities of her upper extremities or lower extremity. She complains of significant pain at her right middle finger. There is no deformity she has full motion. Should there is no swelling there is no ecchymosis. She will not let me touch her hand currently. Computed tomography scan of her cervical spine and computed tomography an MRI of her cervical spine are both reviewed in terms of her bony structure. The CT scan shows severe disc degeneration particular at C3 through 4 C4 5 and C5 6. There is significant osteophytic spurring and loss of disc height. There is evidence of a anterior inferior fracture at the osteophyte of C6. It does not extend significantly into the vertebral body does not extend into the pedicles or posterior elements. The MRI done today of her cervical spine shows severe disc degeneration particular at C3 4 C4 5 and C5 6. There is disc bulging at each level with some foraminal encroachment at each level. There is some effacement anterior thecal sac particular at C4 5 and C5 6. There is no significant swelling within the vertebral bodies to indicate fracture or instability within the vertebral body. There is no cord signal change. There is no significant disc herniation but there is bilateral foraminal stenosis particular at C4 5 and C5 6. There is no significant edema within the posterior elements or the posterior soft tissue. Assessment and plan I agree appears stated above his patient had a significant fall and likely had an extension injury at her cervical spine. She has multiple blunt injuries at her face with a nasal fracture. In terms of her cervical spine there seems to be a small fracture at the anterior inferior osteophyte of C6 but this does not cause her significant instability at her cervical spine overall. She does have severe disc degeneration at multiple levels with evidence of foraminal stenosis but she is not having any motor neurologic decline. I do not think that she is requiring any emergent surgical intervention but she could have some benefit with a hard cervical collar so she can have some comfort and help with her mobilization and stabilizing her cervical spine. I placed her in an [place] collar at bedside. She should keep the other collar as she may need it for bathing after discharge. She should use the hard cervical collar for the next 3-6 weeks to allow for appropriate healing at the anterior-inferior fracture at C6. She is not having any acute neurologic loss and I do not plan any specific surgical intervention at this point area she is however having some pain down to her right middle finger and this does correlate to some degree with some radicular symptoms potentially from C7. She could have had an acute flareup due to her fall along the C7 nerve root. There is good motor function and this should improve with conservative care. She is complaining seen initially at her right middle finger but she has excellent motion at that site without any swelling or deformity. I think that this is primarily radicular in nature and may have some benefit with steroid medication to alleviate some of the nerve irritation and some pain medication. If there is any evidence of swelling he may obtain further imaging but I do not think she needs any immobilization or bracing for her hand and finger at this point. I will order IV steroid and potentially convert that over to oral medications and a tapering form. I discussed this with her at length. She is somewhat poor historian but she is compliant in her exam and seems to understand much of what we discussed. We will continue to manage her and try to work with her with physical therapy with her cervical collar on. We will continue to follow her closely.
[2022-02-05] MEDS ORDERED: DIAZEPAM 5 MG/ML 2 ML INJ IVP STA (12:30)
--- NOTE | 2022-02-05 14:02 | MR ---
EXAMINATION TYPE: MR cervical spine wo con DATE OF EXAM: 02/05/2022 COMPARISON: None HISTORY: C6 fracture S/P fall. TECHNIQUE: Multiplanar, multisequence images of the cervical spine were acquired without contrast. Findings: Exam is limited by involuntary patient motion. The craniovertebral junction relationships and prevertebral soft tissues are normal. There is loss of the normal cervical lordosis. The cervical vertebral segments are normal in height and alignment. Fracture seen in the anterior inf erior aspect of C6 on the prior CT scan is not appreciated on the current study and there is no edema within the C6 vertebral segment to suggest acute trauma. There is moderate to marked degenerative disc disease at the C4-5 and C5-6 levels with moderate to ma rked disc space narrowing and spondylosis. Cervical cord is normal in size and signal intensity. Seco ndary to posterior spondylosis and disc bulge there is mild to moderate cervical stenosis at the C4-5 and C5-6 levels.. IMPRESSION: 1. No definite evidence of acute trauma. The exam is limited by motion artifact but no edema is seen within the C6 vertebral segment to suggest acute trauma. 2. Moderate to marked degenerative disc disease in the mid cervical spine with mild to moderate cervi radha stenosis at C5-6 and C6-7 levels. 3. Normal cervical cord without evidence of myelomalacia or cord compression.
[2022-02-05] MEDS: traMADol 50 MG TAB PO PRN (17:39)
[2022-02-05] MEDS: methylPREDNISolone SOD SUCCI 40 MG/ML 1 ML VIAL IV SCH (17:39)
[2022-02-05] MEDS: METOPROLOL TARTRATE 50 MG TAB PO SCH (20:34)
[2022-02-06] MEDS: methylPREDNISolone SOD SUCCI 40 MG/ML 1 ML VIAL IV SCH ×2 (06:11→17:14)
[2022-02-06] MEDS ORDERED: MAGNESIUM HYDROXIDE 2,400 MG/10 ML CUP PO PRN (09:04)
[2022-02-06] MEDS ORDERED: MAG HYDROX/AL HYDROX/SIMETH 30 ML CUP PO PRN (09:04)
[2022-02-06] MEDS ORDERED: bisacodyL 10 MG SUPP RECTAL PRN (09:04)
[2022-02-06] MEDS ORDERED: ACETAMINOPHEN TAB 325 MG TAB PO PRN (09:04)
[2022-02-06] MEDS ORDERED: NA PHOS,M-B/NA PHOS,DI-BA 133 ML ENEMA RECTAL PRN (09:04)
--- NOTE | 2022-02-06 09:20 | P.PN ---
Subjective Progress Note Date: 02/06/22 HISTORY OF PRESENT ILLNESS 87-year-old female one of my patient in [facility] was known to have history of right-sided breast cancer, history of dementia and atrophy fibrillation has been long-term patient in [facility] for long time. Apparently patient had a fall from standing in her room in [facility] sometimes early this morning developed to have nosebleed and quite bed pain and discomfort left hip area along with neck pain. Patient was transferred to the emergency department at [facility] where was seen and evaluated,X-ray of the chest showed mild pulmonary vascular congestion with mild congestive heart failure but no other abnormality. Pelvic x-ray showed bilateral hip prosthesis with no evidence of trauma or fracture. CT of the brain and the spine showed marked degenerative change in the cervical spine with acute anterior inferior corner fracture of the cervical spine 6 and marked atrophy of the brain with no major bleed. Patient laboratory value showed normal kidney function lactic acid was high at 2.4 still pending urine test at this point. CBC showed WBC of 10.9 with hemoglobin of 12.1 and hematocrit 37.4 platelet count 178. Patient was hospitalized under Dr. Funez service not a clear whether she is to go for surgery or not. Resume her home meds patient is a clear for surgery from medical standpoint no need for any further procedure testing. Will be waiting for her urine test if positive start on antibiotics EKG was done and even though patient is in A. fib status this EKG came back with sinus rhythm. 02/06: Patient is more confused today, was seen orthopedic yesterday review her cervical spine x-ray and CAT scan with the fracture and cervical spine 7 the order an MRI of the cervical spine for better view of the level between C6 and C7 and see if patient will require to go for any intervention. Meanwhile patient continued to have slight weakness of the left upper extremity consistent with her injury there is no fracture in the arm but is quite bit of bruise. Also patient has more bruises around the eyes and both side today from the severity of the cervical spine trauma from yesterday. She is able to move both hips today with no sign of fracture at this point. Patient is more confused today she ended up taking her cervical spine collar off and took her Lind catheter out by herself. Patient be doing straight cath every shift if Residuals above 300 this point. Adequate orthopedic patient most likely does not require to have any surgical intervention on the cervical spine fracture if that's the case for able to return her back to [facility] as early as tomorrow will be a lot easier on her physically and mentally. REVIEW OF SYSTEMS Constitutional: No fever, no chills, no night sweats. No weight change. No weakness, fatigue or lethargy. No daytime sleepiness. EENT: Slight nosebleed, significant cervical spine pain in the posterior area more than the anterior area this point. No headache. No blurred vision or double vision, no loss of vision. No loss of Hearing, no ringing in the ears, no dizziness. No nasal drainage or congestion. No epistaxis. No sore throat. More bruises around the eyes both side. Lungs: No shortness of breath, cough, no sputum production. No wheezing. Cardiovascular: History of atrial fibrillation but No chest pain, no lower extremity edema. No palpitations. No paroxysmal nocturnal dyspnea. No orthopnea. No lightheadedness or dizziness. No syncopal episodes. Abdominal: No abdominal pain. No nausea, vomiting. No diarrhea. No consti pation. No bloody or tarry stools.. No loss of appetite. Genitourinary: No dysuria, increased frequency, urgency. No urinary retention. Musculoskeletal: No myalgias. No muscle weakness, no gait dysfunction, no frequent falls. No back pain. Positive neck pain positive left hip pain with no sign of fracture in the hip. Has more bruises on the left upper extremity today with able to move it Integumentary: No wounds, no lesions. No rash or pruritus. No unusual bruising. No change in hair or nails. Neurologic: No aphasia. No facial droop. No change in mentation. No head injury. No headache. No paralysis. No paresthesia. Psychiatric: No depression. No anxiety. No mood swings. Significant dementia. Endocrine: No abnormal blood sugars. No weight change. No excessive sweating or thirst. No cold intolerance. PHYSICAL EXAMINATION Gen: This is elderly mildly confused still have slight nostril bleed with heart cervical spine brace at this point does not look in any respiratory distress. HEENT: Head is atraumatic, normocephalic. Pupils equal, round. Sclerae is anicteric. More bruises around the eyeball in both side. NECK: Had C-spine hard collar, no lymph node enlargement. LUNGS: Clear to auscultation. No wheezes or rhonchi. No intercostal retractions. HEART: Regular rate and rhythm. Positive systolic murmur, S1-S2 positive S3 ABDOMEN: Soft. Bowel sounds are present. No masses. No tenderness. EXTREMITIES: Scar tissue from hip surgery bilaterally left leg alignment clear with no sign of fracture clinically mild arthritis of the knees. Upper extremity has more bruises and yesterday but she has strength and at this point. NEUROLOGICAL: Patient is awake, alert and oriented with significant confusion Cranial nerves 2 through 12 are grossly intact. ASSESSMENT AND PLAN 1. C-spine 6-7 fracture: Patient was hospitalized will continue cervical collar protection at this point, patient is seen orthopedic whether she can go for surgery or not to be determined by them at this point. 2 post fall with cervical spine fracture with no other orthopedic fracture this point. This be careful with the left hip specially when we are able to ambulate patient if continued to complain of pain may be CAT scan of the hip will be done. She was started on steroid yesterday will continue taper dose and prepare hopefully for going back to [facility] with tapered dose for 1 week. 3 A. fib: Patient has been 2.5 mg twice a day along with metoprolol tartrate 50 mg twice a day resume metoprolol but will hold all request for now. We will keep her Eliquis off until tomorrow 4 history of dementia: She still on Namenda 5 recurrent UTI: UA and culture will be done. 6 GI prophylaxis: Patient will be on Pepcid 20 mg daily. 7 DVT prophylaxis: Patient was on anticoagulation will use knee-high RANI hose and Venodyne boots. CODE STATUS: Full code. Discharge planning: Hopefully return back to [facility] tomorrow if possible. Objective - Vital Signs Vital signs: Vital Signs Temp 97.6 F 02/06/22 08:00 Pulse 98 02/06/22 08:00 Resp 18 02/06/22 08:00 BP 150/83 02/06/22 08:00 Pulse Ox 96 02/06/22 08:00 Intake & Output 02/05/22 02/06/22 02/06/22 17:59 06:59 18:59 Output Total Balance Weight Output: Urine Other: Voiding Method # Bowel Movements - Labs CBC & Chem 7: 02/05/22 06:39 02/05/22 06:39
[2022-02-06] MEDS: METOPROLOL TARTRATE 50 MG TAB PO SCH ×2 (09:40→16:49)
[2022-02-06] MEDS: ALPRAZolam 0.25 MG TAB PO PRN ×2 (09:59→23:27)
[2022-02-06] MEDS: FAMOTIDINE 20 MG TAB PO SCH (09:59)
[2022-02-06] MEDS: CALCIUM CARB-VIT D 500 MG-5 MCG TAB PO SCH (09:59)
[2022-02-06] MEDS: traMADol 50 MG TAB PO PRN ×2 (09:59→15:11)
--- NOTE | 2022-02-06 10:06 | P.PN ---
Subjective Progress Note Date: 02/06/22 Principal diagnosis: C6 fracture Nasal fracture Facial contusions This is an 87-year-old female who resides at [facility] on the dementia care unit. She was found on the floor yesterday after an unwitnessed fall. She was found face down and had bleeding from her nose. She had complaint of facial and neck pain. She was brought to the emergency department via EMS. She was found to have an anterior/inferior C6 fracture as well as a nasal bone fracture. On initial evaluation by the emergency department she was found to be neurologically intact and moving all of her extremities. We were consulted for orthopedic spine evaluation and she is admitted to our service for further assessment and care. The patient is a poor historian and there are no [facility] records available at this time. I also have not been able to contact the patient's family. The nurse was able to speak with someone at the [facility] for some history. 02/06/2022: The patient is evaluated bedside. I had discussion with Dr. Salgado this morning who states that the patient is removing the [place] collar and refusing to keep it on. She seems to be moving better today. Dr. Salgado confir ms that she does routinely take Eliquis for A-fib. There are no new complaints or concerns today. The patient continues to have significant confusion and is slightly agitated today. Vital signs are stable. No new labs. Objective - Vital Signs Vital signs: Vital Signs Temp 97.6 F 02/06/22 08:00 Pulse 98 02/06/22 08:00 Resp 18 02/06/22 08:00 BP 150/83 02/06/22 08:00 Pulse Ox 96 02/06/22 08:00 Intake & Output 02/05/22 02/06/22 02/06/22 17:59 06:59 18:59 Output Total Balance Weight Output: Urine Other: Voiding Method # Bowel Movements - Exam This is an 87-year-old female in no acute distress. She is slightly agitated this morning and is insisting that she needs to speak with Dr. Marie. She is significantly confused today. Exam of the head and neck reveals periorbital ecchymosis. No open wounds noted. Her cervical collar is sitting at the bedside. She is able to move her neck in rotation without obvious pain. Exam the upper extremities reveals full range of motion of the shoulders, elbows, wrists and fingers. She has some stiffness to the left middle finger but is able to make a full fist and fully extend. 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 Exam of the lower extremities reveals full foot and ankle motion bilaterally. She is able to lift each leg off the bed independently. There is a small area of ecchymosis to the right knee. There is no hip irritability noted. Neurovascular status to the lower extremities is intact. - Labs CBC & Chem 7: 02/05/22 06:39 02/05/22 06:39 Assessment and Plan (1) Bilateral arm pain Current Visit: Yes Status: Acute Code(s): M79.601 - PAIN IN RIGHT ARM; M79.602 - PAIN IN LEFT ARM SNOMED Code(s): 804550839 (2) C6 cervical fracture Current Visit: Yes Status: Acute Code(s): S12.500A - UNSP DISP FX OF SIXTH CERVICAL VERTEBRA, INIT FOR CLOS FX SNOMED Code(s): 972166979 (3) Weakness Current Visit: No Status: Acute Code(s): R53.1 - WEAKNESS SNOMED Code(s): 96994811 Plan: The clinical and radiographic findings are discussed with the patient and nursing staff. I have discussed the case with Dr. Salgado. I will contact Dr. Funez to see if he would like to try a soft cervical collar if the patient is agreeable to keep unit in place. We are planning discharge back to [facility] tomorrow. Continue orthopedic care.
--- NOTE | 2022-02-06 11:01 | XR ---
Left hand HISTORY: Pain findings on COMPARISON: None TECHNIQUE: 3 views left hand were obtained FINDINGS: There is mild diffuse osteopenia. There is a small intra-articular avulsion fracture of the base of the distal phalanx of the thumb. There is mild to moderate degenerative change in the radial aspect of the wrist involving the first c arpometacarpal joint and scapholunate trapezium joint. IMPRESSION: 1. Mild to moderate diffuse osteopenia. 2. Fracture of the distal phalanx of the thumb. 3. 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
[2022-02-06] MEDS: VIT A,C & E-LUTEIN-MINERALS 1 EACH TAB PO SCH (16:49)
[2022-02-06] MEDS ORDERED: MEMANTINE 5 MG TAB PO SCH (21:00)
[2022-02-06] MEDS ORDERED: MIRTAZAPINE 15 MG TAB PO SCH (21:00)
[2022-02-06] MEDS ORDERED: traZODone HCL 50 MG TAB PO SCH (21:00)
[2022-02-06] MEDS ORDERED: SENNOSIDES-DOCUSATE SODIUM 1 EACH TAB PO SCH (21:00)
[2022-02-07] MEDS: methylPREDNISolone SOD SUCCI 40 MG/ML 1 ML VIAL IV SCH (06:46)
[2022-02-07 08:13] VITALS: BP 150/73; PULSE 55; RESP 18; TEMP 98.4
--- NOTE | 2022-02-07 08:40 | P.DS ---
Providers Date of admission: 02/05/22 08:26 Expected date of discharge: 02/07/22 Attending physician: Jimi Funez Primary care physician: Alexander Salgado - Discharge Diagnosis(es) (1) Atrial fibrillation Current Visit: Yes Status: Acute (2) Recurrent UTI Current Visit: Yes Status: Acute (3) History of dementia Current Visit: Yes Status: Acute (4) Degenerative disc disease, cervical Current Visit: Yes Status: Acute (5) Osteophyte Current Visit: Yes Status: Acute (6) Bilateral arm pain Current Visit: Yes Status: Acute (7) C6 cervical fracture Current Visit: Yes Status: Acute (8) Fall Current Visit: Yes Status: Acute (9) Nasal bone fracture Current Visit: Yes Status: Acute Hospital Course: This is a pleasant 87-year-old female with a history of dementia who presented presented to the emergency department from [facility] after sustaining a unwitnessed fall. She was found to have C6 anterior inferior fracture and nasal bone fracture. She underwent further imaging including CT and MRI imaging. She was found to have multilevel degenerative changes at her cervical spine. She was experiencing some bilateral arm pain at that time. At the bedside she is not currently complaining of any cervical pain or bilateral arm pain. Her hard cervical collar was discontinued previously. She was having difficulty with comfort. She is also not experiencing any cervical pain. Hard cervical collar is not required at this time. Patient has improved during her admission to the hospital. We are not currently planning for any surgical intervention in regards to her cervical spine. We are currently planning for patient discharged to [facility] rehabilitation facility today pending clearance by medicine. Condition on day of discharge stable. Patient is not required to wear these hard cervical collar at this time. MAPS was previously reviewed. A prescription has been written for [place] 5 mg/325 mg is one tablet every 6 hours as needed for pain, dispensed #28. Opioid consent form was not able to be obtained due to the patient's known dementia. Patient is also given a prescription for a Medrol Dosepak which she should take as directed. Prescriptions have been signed and placed in the patient's chart. Patient will be cleared for discharge from an orthopedic spine standpoint pending clearance by medicine. We will plan to have medicine completing med rec prior to discharge. Patient may continue with other prescribed medication per recommendations by medicine. Patient's other medical diagnoses include atrial fibrillation, history of dementia, and recurrent UTI. Physical Exam on day of discharge: Patient is asleep but is arousable and able to answer some questions at the bedside Vital signs stable Good chest excursion with deep inspiration and expiration No pain with palpation over the cervical spine Adequate range of motion of the cervical spine with adequate flexion, extension, and bilateral rotation Patient is able to perform some active range of motion of the upper extremities independently bilaterally without significant difficulty Evidence of periorbital ecchymosis Patient Condition at Discharge: Fair Plan - Discharge Summary Discharge Rx Participant: Yes New Discharge Prescriptions: New methylPREDNISolone [Medrol Dose Pack] 4 mg PO DIRECTED #1 packet HYDROcodone/APAP 5-325MG [[place] 5-325] 1 tab PO Q6HR PRN #28 tab PRN Reason: Pain No Action Calcium Carbonate/Vitamin D3 [Calcium 500-Vit D3 5 Mcg (200 Iu)] 1 tab PO DAILY@0800 Apixaban [Eliquis] 5 mg PO BID@0800,1700 Memantine [Namenda] 5 mg PO HS Metoprolol Tartrate [Lopressor] 50 mg PO BID@0800,1700 traZODone HCL 25 mg PO HS@2100 Acetaminophen [Tylenol] 650 mg PO Q4H PRN PRN Reason: Pain Or Fever > 100.5 ALPRAZolam [Xanax] 0.25 mg PO BID PRN PRN Reason: Anxiety bisacodyL [Dulcolax] 10 mg RECTAL DAILY PRN PRN Reason: Constipation Mag Hydrox/Al Hydrox/Simeth [Maalox] 30 ml PO Q6H PRN PRN Reason: Indigestion Magnesium Hydroxide [Milk of Magnesia Concentrate] 7,200 mg PO DAILY PRN PRN Reason: Constipation Mirtazapine 7.5 mg PO HS@2100 Na Phos,M-B/Na Phos,Di-Ba [Fleet Adult] 133 ml RECTAL DAILY PRN PRN Reason: Constipation Sennosides/Docusate Sodium [Senna Plus 8.6-50 mg Softgel] 2 cap PO HS@2100 Vit C/E/Zn/Coppr/Lutein/Zeaxan [Preservision Areds 2 Softgel] 1 cap PO BID@0800,1700 Discharge Medication List Calcium Carbonate/Vitamin D3 [Calcium 500-Vit D3 5 Mcg (200 Iu)] 1 tab PO DAILY@0800 05/13/19 [History] ALPRAZolam [Xanax] 0.25 mg PO BID PRN 02/05/22 [History] Acetaminophen [Tylenol] 650 mg PO Q4H PRN 02/05/22 [History] Apixaban [Eliquis] 5 mg PO BID@0800,1700 02/05/22 [History] Mag Hydrox/Al Hydrox/Simeth [Maalox] 30 ml PO Q6H PRN 02/05/22 [History] Magnesium Hydroxide [Milk of Magnesia Concentrate] 7,200 mg PO DAILY PRN 02/05/22 [History] Memantine [Namenda] 5 mg PO HS 02/05/22 [History] Metoprolol Tartrate [Lopressor] 50 mg PO BID@0800,169902/05/22 [History] Mirtazapine 7.5 mg PO HS@209902/05/22 [History] Na Phos,M-B/Na Phos,Di-Ba [Fleet Adult] 133 ml RECTAL DAILY PRN 02/05/22 [History] Sennosides/Docusate Sodium [Senna Plus 8.6-50 mg Softgel] 2 cap PO HS@209902/05/22 [History] Vit C/E/Zn/Coppr/Lutein/Zeaxan [Preservision Areds 2 Softgel] 1 cap PO BID@0800,169902/05/22 [History] bisacodyL [Dulcolax] 10 mg RECTAL DAILY PRN 02/05/22 [History] traZODone HCL 25 mg PO HS@209902/05/22 [History] HYDROcodone/APAP 5-325MG [[place] 5-325] 1 tab PO Q6HR PRN #28 tab 02/06/22 [Rx] methylPREDNISolone [Medrol Dose Pack] 4 mg PO DIRECTED #1 packet 02/06/22 [Rx] Follow up Appointment(s)/Referral(s): Jimi Funez DO [Doctor of Osteopathic Medicine] - 2 Weeks Alexander Salgado MD [Primary Care Provider] - 1-2 days Patient Instructions/Handouts: Fall Prevention for Older Adults (ED) Activity/Diet/Wound Care/Special Instructions: Routine fall precautions. No need for cervical collar. Take Medrol Dosepak as directed. Discharge Disposition: TRANSFER TO SNF/ECF
[2022-02-07] MEDS: VIT A,C & E-LUTEIN-MINERALS 1 EACH TAB PO SCH ×2 (10:29→10:35)
[2022-02-07] MEDS: CALCIUM CARB-VIT D 500 MG-5 MCG TAB PO SCH ×2 (10:29→10:35)
[2022-02-07] MEDS: FAMOTIDINE 20 MG TAB PO SCH ×2 (10:29→10:35)
[2022-02-07] MEDS: METOPROLOL TARTRATE 50 MG TAB PO SCH ×2 (10:29→10:35)
--- NOTE | 2022-02-07 14:18 | P.PN ---
Subjective Progress Note Date: 02/07/22 HISTORY OF PRESENT ILLNESS 87-year-old female one of my patient in [facility] was known to have history of right-sided breast cancer, history of dementia and atrophy fibrillation has been long-term patient in [facility] for long time. Apparently patient had a fall from standing in her room in [facility] sometimes early this morning developed to have nosebleed and quite bed pain and discomfort left hip area along with neck pain. Patient was transferred to the emergency department at [facility] where was seen and evaluated,X-ray of the chest showed mild pulmonary vascular congestion with mild congestive heart failure but no other abnormality. Pelvic x-ray showed bilateral hip prosthesis with no evidence of trauma or fracture. CT of the brain and the spine showed marked degenerative change in the cervical spine with acute anterior inferior corner fracture of the cervical spine 6 and marked atrophy of the brain with no major bleed. Patient laboratory value showed normal kidney function lactic acid was high at 2.4 still pending urine test at this point. CBC showed WBC of 10.9 with hemoglobin of 12.1 and hematocrit 37.4 platelet count 178. Patient was hospitalized under Dr. Funez service not a clear whether she is to go for surgery or not. Resume her home meds patient is a clear for surgery from medical standpoint no need for any further procedure testing. Will be waiting for her urine test if positive start on antibiotics EKG was done and even though patient is in A. fib status this EKG came back with sinus rhythm. 02/06: Patient is more confused today, was seen orthopedic yesterday review her cervical spine x-ray and CAT scan with the fracture and cervical spine 7 the order an MRI of the cervical spine for better view of the level between C6 and C7 and see if patient will require to go for any intervention. Meanwhile patient continued to have slight weakness of the left upper extremity consistent with her injury there is no fracture in the arm but is quite bit of bruise. Also patient has more bruises around the eyes and both side today from the severity of the cervical spine trauma from yesterday. She is able to move both hips today with no sign of fracture at this point. Patient is more confused today she ended up taking her cervical spine collar off and took her Lind catheter out by herself. Patient be doing straight cath every shift if Residuals above 300 this point. Adequate orthopedic patient most likely does not require to have any surgical intervention on the cervical spine fracture if that's the case for able to return her back to [facility] as early as tomorrow will be a lot easier on her physically and mentally. 02/07 patient continues to remain confused but is alert. It appears patient's baseline. Patient is otherwise on room air. Denies any chest pain shortness of breath or breathing difficulty. COVID negative. No recent labs to review. Medications reconciled. Continue Remeron at bedtime along with trazodone and Namenda which elevations home medication. Pepcid is added to prevent gastritis from Medrol Dosepak. Patient to follow with orthopedic as outpatient REVIEW OF SYSTEMS Constitutional: No fever, no chills, no night sweats. No weight change. No weakness, fatigue or lethargy. No daytime sleepiness. EENT: Slight nosebleed, significant cervical spine pain in the posterior area more than the anterior area this point. No headache. No blurred vision or d ouble vision, no loss of vision. No loss of Hearing, no ringing in the ears, no dizziness. No nasal drainage or congestion. No epistaxis. No sore throat. More bruises around the eyes both side. Lungs: No shortness of breath, cough, no sputum production. No wheezing. Cardiovascular: History of atrial fibrillation but No chest pain, no lower extremity edema. No palpitations. No paroxysmal nocturnal dyspnea. No orthopnea. No lightheadedness or dizziness. No syncopal episodes. Abdominal: No abdominal pain. No nausea, vomiting. No diarrhea. No constipation. No bloody or tarry stools.. No loss of appetite. Genitourinary: No dysuria, increased frequency, urgency. No urinary retention. Musculoskeletal: No myalgias. No muscle weakness, no gait dysfunction, no frequent falls. No back pain. Positive neck pain positive left hip pain with no sign of fracture in the hip. Has more bruises on the left upper extremity today with able to move it Integumentary: No wounds, no lesions. No rash or pruritus. No unusual bruising. No change in hair or nails. Neurologic: No aphasia. No facial droop. No change in mentation. No head injury. No headache. No paralysis. No paresthesia. Psychiatric: No depression. No anxiety. No mood swings. Significant dementia. Endocrine: No abnormal blood sugars. No weight change. No excessive sweating or thirst. No cold intolerance. PHYSICAL EXAMINATION Gen: This is elderly mildly confused comfortable in no respiratory distress HEENT: Head is atraumatic, normocephalic. Pupils equal, round. Sclerae is anicteric. More bruises around the eyeball in both side. NECK: Had C-spine hard collar, no lymph node enlargement. LUNGS: Clear to auscultation. No wheezes or rhonchi. No intercostal retractions. HEART: Regular rate and rhythm. Positive systolic murmur, S1-S2 positive S3 ABDOMEN: Soft. Bowel sounds are present. No masses. No tenderness. EXTREMITIES: Scar tissue from hip surgery bilaterally left leg alignment clear with no sign of fracture clinically mild arthritis of the knees. Upper extremity has more bruises and yesterday but she has strength and at this point. NEUROLOGICAL: Patient is awake, alert and oriented with significant confusion Cranial nerves 2 through 12 are grossly intact. ASSESSMENT AND PLAN 1. C-spine 6-7 fracture: Had collar discontinued by orthopedics. Supportive care 2 status post fall with cervical spine fracture with no other orthopedic fracture this point. This be careful with the left hip specially when we are able to ambulate patient if continued to complain of pain may be CAT scan of the hip will be done. 3 A. fib: Patient has been eliquis twice a day along with metoprolol tartrate 50 mg twice a day 4 history of dementia: She still on Namenda 5 recurrent UTI: No UA in chart. Confusion should not be considered a symptom of UTI 6 GI prophylaxis: Patient will be on Pepcid 20 mg daily. CODE STATUS: Full code. Discharge planning: Hopefully return back to [facility] today Objective - Vital Signs Vital signs: Vital Signs Temp 98.4 F 02/07/22 08:00 Pulse 55 L 02/07/22 08:00 Resp 18 02/07/22 08:00 BP 150/73 02/07/22 08:00 Pulse Ox 100 02/07/22 08:00 Intake & Output 02/06/22 02/07/22 02/07/22 18:59 06:59 18:59 Output Total 1150 Balance -1150 Output: Urine 1150 Straight 600 Other: # Voids 3 - Labs CBC & Chem 7: 02/05/22 06:39 02/05/22 06:39
== END 2022-02-07 15:21 | DRG 552 ==
LOC: EC 06:14 → EEVIPCON 06:14 → 4SSUR 08:26
PROVIDERS: ADMIT Orthopaedic Surgery Orthopaedic Surgery of the Spine; ATTEND Orthopaedic Surgery Orthopaedic Surgery of the Spine
DX: S12.500A Unspecified displaced fracture of sixth cervical vertebra, initial encounter for closed fracture (principal); N39.0 Urinary tract infection, site not specified; S02.2XXA Fracture of nasal bones, initial encounter for closed fracture; I50.9 Heart failure, unspecified; M25.78 Osteophyte, vertebrae; M48.02 Spinal stenosis, cervical region; M50.323 Other cervical disc degeneration at C6-C7 level; G30.9 Alzheimer's disease, unspecified; W19.XXXA Unspecified fall, initial encounter; Z20.822 Contact with and (suspected) exposure to COVID-19; S80.01XA Contusion of right knee, initial encounter; R04.0 Epistaxis; M19.90 Unspecified osteoarthritis, unspecified site; F02.80 Dementia in other diseases classified elsewhere, unspecified severity, without behavioral disturbance, psychotic disturbance, mood disturbance, and anxiety; M79.601 Pain in right arm; M79.602 Pain in left arm; R53.1 Weakness; G31.89 Other specified degenerative diseases of nervous system; F32.A Depression, unspecified; I48.91 Unspecified atrial fibrillation; W18.30XA Fall on same level, unspecified, initial encounter; Z79.01 Long term (current) use of anticoagulants; Z79.82 Long term (current) use of aspirin; Z79.899 Other long term (current) drug therapy; Z82.49 Family history of ischemic heart disease and other diseases of the circulatory system; Z83.3 Family history of diabetes mellitus; Z85.3 Personal history of malignant neoplasm of breast; Z87.440 Personal history of urinary (tract) infections; Z90.11 Acquired absence of right breast and nipple
CPT/HCPCS: 70450; 70486; 71045; 72125; 72141; 72170; 80053; 83605; 83735; 83880; 84100; 84484; 85025; 85610; 85730; 87635; 93005; 99291

== ENCOUNTER 2025-06-27 12:41 | Emergency (ER) | payer MEDICARE ==
[2025-06-27 12:54] VITALS: RESP 18; TEMP 97.8
--- NOTE | 2025-06-27 14:07 | ED ---
General Adult HPI - General Chief complaint: Syncope Stated complaint: Syncope Time Seen by Provider: 06/27/25 12:45 Source: EMS Mode of arrival: EMS Limitations: no limitations - History of Present Illness Initial comments: 89-year-old female presents to the emergency department with 2 episodes of unresponsiveness. EMS to provide the history. Patient comes from [facility]. It was reported that the patient had to episodes of unresponsiveness within a 10-minute period and therefore they transported the patient to the emergency department. Patient cannot provide any history. She does not know why she is in the emergency department. Patient denies headache or visual changes. No nausea or vomiting. No chest pain or difficulty breathing. No abdominal pain. No other alleviating, precipitating factors - Related Data Home Medications Medication Instructions Recorded Confirmed Calcium Carbonate/Vitamin D3 1 tab PO DAILY@0800 05/13/19 02/05/22 [Calcium 500-Vit D3 5 Mcg (200 Iu)] Acetaminophen [Tylenol] 650 mg PO Q4H PRN 02/05/22 02/05/22 Apixaban [Eliquis] 5 mg PO BID@0800,1700 02/05/22 02/05/22 Mag Hydrox/Al Hydrox/Simeth 30 ml PO Q6H PRN 02/05/22 02/05/22 [Maalox] Magnesium Hydroxide [Milk of 7,200 mg PO DAILY PRN 02/05/22 02/05/22 Magnesia Concentrate] Memantine [Namenda] 5 mg PO HS 02/05/22 02/05/22 Metoprolol Tartrate [Lopressor] 50 mg PO BID@0800,1700 02/05/22 02/05/22 Mirtazapine 7.5 mg PO HS@209902/05/22 02/05/22 Na Phos,M-B/Na Phos,Di-Ba [Fleet 133 ml RECTAL DAILY PRN 02/05/22 02/05/22 Adult] Sennosides/Docusate Sodium [Senna 2 cap PO HS@209902/05/22 02/05/22 Plus 8.6-50 mg Softgel] Vit C/E/Zn/Coppr/Lutein/Zeaxan 1 cap PO BID@0800,1700 02/05/22 02/05/22 [Preservision Areds 2 Softgel] bisacodyL [Dulcolax] 10 mg RECTAL DAILY PRN 02/05/22 02/05/22 traZODone HCL 25 mg PO HS@2100 02/05/22 02/05/22 Previous Rx's Medication Instructions Recorded HYDROcodone/APAP 5-325MG [[place] 1 tab PO Q6HR PRN #28 tab 02/06/22 5-325] methylPREDNISolone [Medrol Dose 4 mg PO DIRECTED #1 packet 02/06/22 Pack] ALPRAZolam [Xanax] 0.25 mg PO BID PRN #6 tab 02/07/22 Famotidine [Pepcid] 20 mg PO DAILY tab 02/07/22 Sulfamethox-Tmp 800-160Mg [Bactrim 1 each PO Q12HR #10 tab 06/27/25 Ds] Allergies Allergy/AdvReac Type Severity Reaction Status Date / Time No Known Allergies Allergy Verified 06/27/25 12:50 Review of Systems ROS Statement: Those systems with pertinent positive or pertinent negative responses have been documented in the HPI. ROS Other: All systems not noted in ROS Statement are negative. Past Medical History Past Medical History: Dementia, Osteoarthritis (OA) Additional Past Medical History / Comment(s): RT breast CA (previous.) History of Any Multi-Drug Resistant Organisms: None Reported Past Surgical History: Appendectomy Additional Past Surgical History / Comment(s): Rt sided mastectomy Past Anesthesia/Blood Transfusion Reactions: No Reported Reaction Past Psychological History: Depression Smoking Status: Unknown if ever smoked Past Alcohol Use History: None Reported Past Drug Use History: None Reported - Past Family History Mother History Unknown: Yes Father History Unknown: Yes Family Medical History: Hyperlipidemia General Exam Limitations: altered mental status General appearance: alert, in no apparent distress Head exam: Present: atraumatic, normocephalic, normal inspection Eye exam: Present: normal appearance, PERRL, EOMI. Absent: scleral icterus, conjunctival injection, periorbital swelling ENT exam: Present: normal exam, mucous membranes moist Neck exam: Present: normal inspection. Absent: tenderness, meningismus, lymphadenopathy Respiratory exam: Present: normal lung sounds bilaterally. Absent: respiratory distress, wheezes, rales, rhonchi, stridor Cardiovascular Exam: Present: regular rate, normal rhythm, normal heart sounds. Absent: systolic murmur, diastolic murmur, rubs, gallop, clicks GI/Abdominal exam: Present: soft, normal bowel sounds. Absent: distended, tenderness, guarding, rebound, rigid Extremities exam: Present: normal inspection, full ROM, normal capillary refill. Absent: tenderness, pedal edema, joint swelling, calf tenderness Back exam: Present: normal inspection Neurological exam: Present: alert, CN II-XII intact Psychiatric exam: Present: normal affect, normal mood Skin exam: Present: warm, dry, intact, normal color. Absent: rash Course Vital Signs 06/27/25 06/27/25 12:43 20:23 Temperature 97.8 F 97.8 F Pulse Rate 70 72 Respiratory 18 18 Rate Blood Pressure 139/49 131/52 O2 Sat by Pulse 100 98 Oximetry Medical Decision Making - Medical Decision Making Was pt. sent in by a medical professional or institution (, PA, [employer], urgent care, hospital, or detention...) When possible be specific @ -Sent in from her ECF Did you speak to anyone other than the patient for history (EMS, parent, family, police, friend...)? What history was obtained from this source @ -spoke to EMS for history Did you review nursing and triage notes (agree or disagree)? Why? @ -I reviewed and agree with nursing and triage notes Were old charts reviewed (outside hosp., previous admission, EMS record, old EKG, old radiological studies, urgent care reports/EKG's, detention records)? Report findings @ -No old charts were reviewed Differential Diagnosis (chest pain, altered mental status, abdominal pain women, abdominal pain men, vaginal bleeding, weakness, fever, dyspnea, syncope, headache, dizziness, GI bleed, back pain, seizure, CVA, palpatations, mental health, musculoskeletal)? @ -Differential Syncope: Valvular disease, hypertrophic cardiomyopathy, pulmonary embolism, tamponade, tachycardia, bradycardia, LA, hypovolemia, hemorrhage, dissection, anemia, intracranial hemorrhage, seizure, hypoglycemia, carbon monoxide poisoning, this is not meant to be an all-inclusive list. EKG interpreted by me (3pts min.). @ -Which demonstrates sinus rhythm with a rate of 62. UT interval 218. QRS 98. QTc of 434. No acute ST segment elevations or depressions X-rays interpreted by me (1pt min.). @ -Yes which demonstrates no acute process CT interpreted by me (1pt min.). @ -None done U/S interpreted by me (1pt. min.). @ -None done What testing was considered but not performed or refused? (CT, X-rays, U/S, labs)? Why? @ -None What meds were considered but not given or refused? Why? @ -None Did you discuss the management of the patient with other professionals (professionals i.e. , PA, [employer], lab, RT, psych nurse, social work professor, support associate, teacher, navigation officer, shelter case manager)? Give summary @ -No Was smoking cessation discussed for >3mins.? @ -No Was critical care preformed (if so, how long)? @ -No Were there social determinants of health that impacted care today? How? (Homelessness, low income, unemployed, alcoholism, drug addiction, transportation, low edu. Level, literacy, decrease access to med. care, long term, rehab)? @ -Patient resides at an ECF Was there de-escalation of care discussed even if they declined (Discuss DNR or withdrawal of care, Hospice)? DNR status @ -No What co-morbidities impacted this encounter? (DM, HTN, Smoking, COPD, CAD, Cancer, CVA, ARF, Chemo, Hep., AIDS, mental health diagnosis, sleep apnea, morbid obesity)? @ -Dementia Was patient admitted / discharged? Hospital course, mention meds given and route, prescriptions, significant lab abnormalities, going to OR and other pertinent info. @ -Patient seen and evaluated in room 22. Thorough history and physical exam was performed. IV access was established. Laboratory studies are conducted. Urinalysis was obtained via straight cath. Urinalysis is grossly infected. Patient does have leukocytosis of 18,000. She remains alert and oriented throughout her stay in the emergency department. She has initiated on antibiotics and will be transferred back to her ECF with further antibiotic treatment. She is to return for any new or worsening symptoms. Patient discharged in stable condition Undiagnosed new problem with uncertain prognosis? @ -No Drug Therapy requiring intensive monitoring for toxicity (Heparin, Nitro, Insulin, Cardizem)? @ -No Were any procedures done? @ -No Diagnosis/symptom? @ -Acute syncope, acute UTI, leukocytosis Acute, or Chronic, or Acute on Chronic? @ -Acute Uncomplicated (without systemic symptoms) or Complicated (systemic symptoms)? @ -complicated Side effects of treatment? @ -No Exacerbation, Progression, or Severe Exacerbation? @ -No Poses a threat to life or bodily function? How? (Chest pain, USA, LA, pneumonia, PE, COPD, DKA, ARF, appy, cholecystitis, CVA, Diverticulitis, Homicidal, Suicidal, threat to staff... and all critical care pts) @ -No - Lab Data Result diagrams: 06/27/25 14:16 06/27/25 15:30 Lab Results 06/27/25 06/27/25 06/27/25 Range/Units 14:16 14:16 14:16 WBC 18.65 H (4.50-10.00) 10*3/uL RBC 4.19 (4.10-5.20) 10*6/uL Hgb 12.6 (12.0-15.0) g/dL Hct 38.1 (37.2-46.3) % MCV 90.9 (80.0-97.0) fL MCH 30.1 (27.0-32.0) pg MCHC 33.1 (32.0-37.0) g/dL Plt Count 205 (140-440) 10*3/uL MPV 11.9 (9.5-12.2) fL Immature Gran % (Auto) 0.4 % Neutrophils % 85.8 % Lymphocytes % 9.8 % Monocytes % 3.3 % Eosinophils % 0.3 % Basophils % 0.4 % Immature Gran # 0.08 H (0.00-0.04) 10*3/uL Neutrophils # 15.99 H (1.80-7.70) 10*3/uL Lymphocytes # 1.83 (0.90-5.00) 10*3/uL Monocytes # 0.62 (0.20-1.00) 10*3/uL Eosinophils # 0.06 (0.04-0.35) 10*3/uL Basophils # 0.07 (0.00-0.10) 10*3/uL PT 11.5 (10.0-12.5) sec INR 1.1 (<1.2) APTT 26.8 (22.0-30.0) sec Sodium (137-145) mmol/L Potassium (3.5-5.1) mmol/L Chloride (98-107) mmol/L Carbon Dioxide (22-30) mmol/L Anion Gap mmol/L BUN (7-17) mg/dL Creatinine (0.52-1.04) mg/dL Est GFR (CKD-EPI)AfAm (>60 ml/min/1.73 sqM) Est GFR (CKD-EPI)NonAf (>60 ml/min/1.73 sqM) Glucose (74-99) mg/dL Calcium (8.4-10.2) mg/dL Total Bilirubin (0.2-1.3) mg/dL AST (14-36) U/L ALT (4-34) U/L Alkaline Phosphatase (38-126) U/L Troponin I <0.012 (0.000-0.034) ng/mL Total Protein (6.3-8.2) g/dL Albumin (3.5-5.0) g/dL Urine Color Urine Appearance (Clear) Urine pH (5.0-8.0) Ur Specific [place] (1.001-1.035) Urine Protein (Negative) Urine Glucose (UA) (Negative) Urine Ketones (Negative) Urine Blood (Negative) Urine Nitrite (Negative) Urine Bilirubin (Negative) Urine Urobilinogen (<2.0) mg/dL Ur Leukocyte Esterase (Negative) Urine RBC (0-5) /hpf Urine WBC (0-5) /hpf Urine WBC Clumps (None) /hpf Ur Squamous Epith Cells (0-4) /hpf Urine Bacteria (None) /hpf Urine Mucus (None) /hpf 06/27/25 06/27/25 Range/Units 15:30 16:00 WBC (4.50-10.00) 10*3/uL RBC (4.10-5.20) 10*6/uL Hgb (12.0-15.0) g/dL Hct (37.2-46.3) % MCV (80.0-97.0) fL MCH (27.0-32.0) pg MCHC (32.0-37.0) g/dL Plt Count (140-440) 10*3/uL MPV (9.5-12.2) fL Immature Gran % (Auto) % Neutrophils % % Lymphocytes % % Monocytes % % Eosinophils % % Basophils % % Immature Gran # (0.00-0.04) 10*3/uL Neutrophils # (1.80-7.70) 10*3/uL Lymphocytes # (0.90-5.00) 10*3/uL Monocytes # (0.20-1.00) 10*3/uL Eosinophils # (0.04-0.35) 10*3/uL Basophils # (0.00-0.10) 10*3/uL PT (10.0-12.5) sec INR (<1.2) APTT (22.0-30.0) sec Sodium 139 (137-145) mmol/L Potassium 4.8 (3.5-5.1) mmol/L Chloride 103 (98-107) mmol/L Carbon Dioxide 24 (22-30) mmol/L Anion Gap 12 mmol/L BUN 20 H (7-17) mg/dL Creatinine 0.66 (0.52-1.04) mg/dL Est GFR (CKD-EPI)AfAm >90 (>60 ml/min/1.73 sqM) Est GFR (CKD-EPI)NonAf 79 (>60 ml/min/1.73 sqM) Glucose 100 H (74-99) mg/dL Calcium 9.0 (8.4-10.2) mg/dL Total Bilirubin 0.7 (0.2-1.3) mg/dL AST 34 (14-36) U/L ALT 16 (4-34) U/L Alkaline Phosphatase 137 H (38-126) U/L Troponin I (0.000-0.034) ng/mL Total Protein 7.3 (6.3-8.2) g/dL Albumin 4.0 (3.5-5.0) g/dL Urine Color Yellow Urine Appearance Turbid H (Clear) Urine pH 7.0 (5.0-8.0) Ur Specific [place] 1.014 (1.001-1.035) Urine Protein 1+ H (Negative) Urine Glucose (UA) Negative (Negative) Urine Ketones Negative (Negative) Urine Blood Moderate H (Negative) Urine Nitrite Negative (Negative) Urine Bilirubin Negative (Negative) Urine Urobilinogen <2.0 (<2.0) mg/dL Ur Leukocyte Esterase Large H (Negative) Urine RBC 64 H (0-5) /hpf Urine WBC >182 H (0-5) /hpf Urine WBC Clumps Many H (None) /hpf Ur Squamous Epith Cells 3 (0-4) /hpf Urine Bacteria Many H (None) /hpf Urine Mucus Rare H (None) /hpf Disposition Clinical Impression: Recurrent UTI, Leukocytosis Disposition: HOME SELF-CARE Condition: Stable Instructions (If sedation given, give patient instructions): Urinary Tract Infection in Women (ED) Additional Instructions: Take the antibiotics starting tomorrow. Have lab work and urinalysis repeated to ensure that the infection has cleared after the antibiotics are finished. Return for any new or worsening symptoms Prescriptions: Sulfamethox-Tmp 800-160Mg [Bactrim Ds] 1 each PO Q12HR #10 tab Is patient prescribed a controlled substance at d/c from ED?: No Referrals: Alexander Salgado MD [Primary Care Provider] - 1-2 days Time of Disposition: 18:06
--- NOTE | 2025-06-27 14:09 | XR ---
EXAMINATION TYPE: XR chest 2V DATE OF EXAM: 06/27/2025 1:59 PM COMPARISON: Chest radiographs from 02/05/2022 TECHNIQUE: XR chest 2V Frontal and lateral views of the chest. CLINICAL INDICATION:Female, 89 years old with history of syncope; FINDINGS: Lungs/Pleura: There is no evidence of pleural effusion, focal consolidation, or pneumothorax. Pulmonary vascularity: Pulmonary vascular congestion. Heart/mediastinum: Cardiomediastinal silhouette is enlarged and stable. Atherosclerotic calcificatio ns are seen in the aorta. Musculoskeletal: No acute osseous pathology. Advanced right shoulder arthropathy. Other: Surgical clips within the right axilla. IMPRESSION: Cardiomegaly and mild pulmonary vascular congestion. Correlate with BNP for congestive heart failure. [facility], , 06/27/2025 2:06 PM
[2025-06-27 14:26] LABS: Basophils # (A) 0.07 10*3/uL (0.00-0.10); Basophils % (A) 0.4 %; Eosinophils # (A) 0.06 10*3/uL (0.04-0.35); Eosinophils % (A) 0.3 %; HCT 38.1 % (37.2-46.3); HGB 12.6 g/dL (12.0-15.0); Lymphocytes # (A) 1.83 10*3/uL (0.90-5.00); Lymphocytes % (A) 9.8 %; MCH 30.1 pg (27.0-32.0); MCHC 33.1 g/dL (32.0-37.0); MCV 90.9 fL (80.0-97.0); Monocytes # (A) 0.62 10*3/uL (0.20-1.00); Monocytes % (A) 3.3 %; Neutrophils # (A) 15.99 10*3/uL (1.80-7.70); Neutrophils % (A) 85.8 %; Platelet Count 205 10*3/uL (140-440); RBC 4.19 10*6/uL (4.10-5.20); RDW 14.1 % (11.5-14.5); WBC 18.65 10*3/uL (4.50-10.00)
[2025-06-27 14:39] LABS: INR 1.1 (<1.2); Partial Thromboplastin Time 26.8 sec (22.0-30.0); Prothrombin Time 11.5 sec (10.0-12.5)
[2025-06-27 16:15] LABS: ALT 16 U/L (4-34); African American GFR (CKD) >90 (>60 ml/min/1.73 sqM); Albumin 4.0 g/dL (3.5-5.0); Anion Gap 12 mmol/L; Blood Urea Nitrogen 20 mg/dL (7-17); Calcium 9.0 mg/dL (8.4-10.2); Carbon Dioxide 24 mmol/L (22-30); Chloride 103 mmol/L (98-107); Glucose 100 mg/dL (74-99); Non-African American GFR(CKD) 79 (>60 ml/min/1.73 sqM); Sodium 139 mmol/L (137-145); Total Protein 7.3 g/dL (6.3-8.2)
[2025-06-27 16:27] LABS: AST 34 U/L (14-36); Alkaline Phosphatase 137 U/L (38-126); Potassium 4.8 mmol/L (3.5-5.1)
[2025-06-27] MEDS: LORazepam 1 MG/0.5 ML VIAL IV STA (16:43)
[2025-06-27 17:37] LABS: Bacteria,Urine Many /hpf; Bilirubin,Urine Negative (Negative); Blood,Urine Moderate (Negative); Color,Urine Yellow; Glucose,Urine (UA) Negative (Negative); Ketones,Urine Negative (Negative); Leukocyte Esterase,Urine Large (Negative); Mucus,Urine Rare /hpf; Nitrite,Urine Negative (Negative); PH, Urine 7.0 (5.0-8.0); Protein,Urine 1+ (Negative); RBC,Urine 64 /hpf (0-5); Squamous Epithelial Cell,Urine 3 /hpf (0-4); Urobilinogen,Urine <2.0 mg/dL (<2.0); WBC,Urine >182 /hpf (0-5)
[2025-06-27 17:39] LABS: Specific Gravity,Urine 1.014 (1.001-1.035)
[2025-06-27] MEDS: cefTRIAXone IN SWFI 1,000 MG/10 ML SYRINGE IVP STA (19:32)
[2025-06-27 20:25] VITALS: BP 131/52; PULSE 72
== END 2025-06-27 20:25 | disposition home or self-care (01) ==
LOC: EC 12:41
DX: N39.0 Urinary tract infection, site not specified (principal); D72.829 Elevated white blood cell count, unspecified; F03.90 Unspecified dementia, unspecified severity, without behavioral disturbance, psychotic disturbance, mood disturbance, and anxiety; Z87.440 Personal history of urinary (tract) infections
CPT/HCPCS: 36415; 93005; 80053; 84484; 85025; 85610; 85730; 81001; 71046; 99285; 96374; 96375; J2060; J0696